=== PATIENT | male | born 1930 | race Two or more races ===

== ENCOUNTER 2016-12-26 19:58 | Inpatient (IN) | payer MEDICARE, MEDICAID ==
[~2016-12-26] VITALS: Ht 188 cm; Wt 117.5 kg
[2016-12-26 20:16] LABS: BASOPHILS # (AUTO) 0.1 /CMM (0.0-0.2); BASOPHILS % (AUTO) 1.3 % (0.0-2.0); DIFF TOTAL % 100 %; EOSINOPHILS % (AUTO) 0.3 % (0.0-6.0); HEMATOCRIT 37 % (39-51); HEMOGLOBIN 12.3 g/dL (13.5-17.5); LYMPHOCYTES # (AUTO) 1.3 /CMM (0.8-4.8); LYMPHOCYTES % (AUTO) 11.6 % (20.0-44.0); MEAN CORPUSCULAR HEMOGLOBIN 34 PG (26.0-33.0); MEAN CORPUSCULAR HGB CONC 34 g/dl (31.0-36.0); MEAN CORPUSCULAR VOLUME 99 fL (80-96); MONOCYTES % (AUTO) 9.2 % (2.0-12.0); NEUTROPHILS # (AUTO) 8.8 /CMM (1.8-8.9); NEUTROPHILS % (AUTO) 77.6 % (43.0-81.0); PLATELET COUNT (AUTO) 307 /CMM (150-450); RED BLOOD CELL COUNT(AUTO) 3.67 MIL/uL (4.5-6.0); WHITE BLOOD COUNT (AUTO) 11.2 K/uL (4.3-11.0)
[2016-12-26] MEDS ORDERED: ACETAMINOPHEN 650 MG/SUPP.RECT RC ONE ×2 (20:19→20:30)
[2016-12-26] MEDS ORDERED: IV SET PRIMARY 1 EA INFUS.SET MC ONE ×2 (20:19→20:24)
[2016-12-26] MEDS ORDERED: IV NS 0.9% 1,000 ML ONE (20:19)
[2016-12-26] MEDS ORDERED: CEFEPIME 1 GM VIAL ONE (20:23)
[2016-12-26] MEDS ORDERED: VANCOMYCIN 1 GM VIAL ONE (20:24)
[2016-12-26] MEDS ORDERED: IV D5W 250 ML IV ONE (20:24)
[2016-12-26] MEDS ORDERED: IV SET PRIMARY PUMP SET 1 EA INFUS.SET MC ONE ×2 (20:24→21:16)
[2016-12-26] MEDS ORDERED: IV D5W 50 ML IV ONE (20:24)
[2016-12-26] MEDS ORDERED: POLY15DR57 EACHEYE (20:29)
[2016-12-26] MEDS ORDERED: MAGN400O6 PO (20:29)
[2016-12-26] MEDS ORDERED: APIX2.5T PO (20:29)
[2016-12-26] MEDS ORDERED: INSU100C10 SQ (20:29)
[2016-12-26] MEDS ORDERED: AMIO100T4 PO (20:29)
[2016-12-26] MEDS ORDERED: IPRA3AMP IH (20:29)
[2016-12-26] MEDS ORDERED: INSU100V7 SQ (20:29)
[2016-12-26] MEDS ORDERED: DOCU-170 PO (20:29)
[2016-12-26] MEDS ORDERED: METH40VI24 IJ (20:29)
[2016-12-26] MEDS ORDERED: CARB1TAB19 PO (20:29)
[2016-12-26] MEDS ORDERED: LACT1CAP61 PO (20:29)
[2016-12-26] MEDS ORDERED: FLUT16SP BNOSTRILS (20:29)
[2016-12-26] MEDS ORDERED: BACI28.42 TP (20:29)
[2016-12-26] MEDS ORDERED: LEVO137T2 PO (20:29)
[2016-12-26] MEDS ORDERED: ACET650T10 PO (20:29)
[2016-12-26] MEDS ORDERED: MAGN400T6 PO (20:29)
[2016-12-26] MEDS ORDERED: CRAN425C PO (20:29)
[2016-12-26] MEDS ORDERED: FURO-144 PO (20:29)
[2016-12-26] MEDS ORDERED: [UNRECOGNIZED DRUG - CODE] EACHEYE (20:29)
[2016-12-26] MEDS ORDERED: BISA10SU8 RC (20:29)
[2016-12-26] MEDS ORDERED: VENL75TA4 PO (20:29)
[2016-12-26] MEDS ORDERED: CEFEPIME 1 GM in IV D5W 50 ML IV ONE (20:30)
[2016-12-26] MEDS ORDERED: IV NS 0.9% 1,000 ML BAG IV ONE (20:30)
[2016-12-26] MEDS ORDERED: VANCOMYCIN 1 GM in IV D5W 250 ML IV ONE (20:30)
[2016-12-26 20:31] LABS: INR 0.99 (0.87-1.13); PROTHROMBIN TIME 10.4 SECS (9.5-12.7)
[2016-12-26 20:32] LABS: ANION GAP 12 (5-14); CALCIUM, SERUM 8.4 mg/dL (8.5-10.1); CARBON DIOXIDE 29 mmol/L (21-32); CHLORIDE 103 mmol/L (98-107); CREATININE 2.3 mg/dL (0.6-1.3); GLUCOSE 209 mg/dL (74-106); POTASSIUM 5.3 mmol/L (3.5-5.1); SODIUM SERUM 139 mmol/L (136-145); UREA NITROGEN, BLOOD 38 mg/dL (7-18)
[2016-12-26 20:43] LABS: ALANINE AMINOTRANSFERASE 14 U/L (12-78); ALBUMIN 3.4 g/dL (3.4-5.0); ASPARTATE AMINOTRANSFERASE 30 U/L (15-37); BILIRUBIN,DIRECT 0.1 mg/dL (0.0-0.2); BILIRUBIN,TOTAL 0.5 mg/dL (0.2-1.0); TOTAL PROTEIN, SERUM 7.7 g/dL (6.4-8.2)
[2016-12-26 20:44] LABS: INDIRECT BILIRUBIN 0.4 mg/dL (0.0-1.1)
[2016-12-26 20:52] LABS: LACTIC ACID 3.8 mmol/L (0.4-2.0)
[2016-12-26 20:55] VITALS: BP 85/56
[2016-12-26 20:58] LABS: TROPONIN I 0.388 ng/mL (0.00-0.056)
[2016-12-26 21:13] LABS: *LACTIC ACID REFLEX FLAG YES
[2016-12-26] MEDS ORDERED: NOREPINEPHRINE 4 MG/4 ML AMPUL IV ONE (21:16)
[2016-12-26] MEDS ORDERED: IV D5W 500 ML IV ONE (21:16)
[2016-12-26 21:28] LABS: ABG BASE EXCESS -0.8 mmol/L; ABG HCO3 25.9 mmol/L; ABG PCO2 52.6 mmHg (35.0-45.0); ABG PH 7.311 (7.350-7.450); ABG PO2 29.3 mmHg (75.0-100.0); ALLEN TEST Pass; AaDO2 631.1 mmHg; O2Hb 47.4 % (94.0-97.0)
[2016-12-26] MEDS ORDERED: NOREPINEPHRINE 8 MG in IV D5W 500 ML IV ONE (21:30)
[2016-12-26] MEDS ORDERED: KETOROLAC TROMETHAMINE INJ 30 MG/ML VIAL IV STA (21:46)
[2016-12-26] MEDS ORDERED: KETOROLAC TROMETHAMINE 15 MG/ML VIAL ONE (21:46)
[2016-12-26 21:55] LABS: KETONES,URINE NEGATIVE (NEGATIVE); LEUKOCYTE ESTERASE ,URINE 3+ (NEGATIVE); PH,URINE 5.5 (5.0-8.0)
[2016-12-26 21:56] LABS: ADD UA MICROSCOPIC YES
[2016-12-26 22:00] VITALS: BP 109/62
[2016-12-26 22:04] LABS: ADD URINE CULTURE YES; WBC,URINE 51-80 /HPF (0-3)
[2016-12-26 22:05] LABS: MUCUS,URINE Few /LPF (None Seen)
[2016-12-26] MEDS ORDERED: ACETAMINOPHEN 650 MG/SUPP.RECT RC PRN (22:30)
[2016-12-26] MEDS ORDERED: ONDANSETRON HCL/PF 4 MG/2 ML VIAL IVP PRN (22:30)
[2016-12-26] MEDS ORDERED: NOREPINEPHRINE 8 MG in IV D5W 500 ML IV PRN (22:30)
[2016-12-26 23:00] VITALS: BP 102/62
[2016-12-26] MEDS ORDERED: DEXTROSE 50%-WATER 50 ML DISP.SYRIN IV PRN (23:00)
[2016-12-26] MEDS: BLOOD SUGAR DIAGNOSTIC 1 EACH STRIP IN SCH (23:35)
[2016-12-26] MEDS: INSULIN REGULAR, HUMAN 100 UNIT/ML 3 ML VIAL SQ PRN (23:38)
[2016-12-26 23:49] VITALS: BP 112/59
[2016-12-27] VITALS (58 sets, daily range): BP systolic 56–164; BP diastolic 43–112
[2016-12-27] MEDS ORDERED: ASPIRIN 81 MG TAB.CHEW PO STA (00:12)
[2016-12-27] MEDS ORDERED: ASPIRIN 81 MG TAB.CHEW ONE (00:36)
[2016-12-27] MEDS ORDERED: ALBUTEROL FS 2.5 MG/3 ML VIAL.NEB NEB ONE (01:00)
[2016-12-27] MEDS ORDERED: ALBUTEROL FS 2.5 MG/0.5 ML VIAL.NEB NEB PRN (01:00)
[2016-12-27] MEDS ORDERED: IPRATROPIUM NEB FS 0.5 MG/2.5 ML AMPUL.NEB NEB PRN (01:00)
[2016-12-27] MEDS ORDERED: ALBUTEROL FS 2.5 MG/3 ML VIAL.NEB ONE (01:15)
[2016-12-27] MEDS ORDERED: NOREPINEPHRINE 8 MG in IV D5W 500 ML IV PRN (01:30)
[2016-12-27 05:01] LABS: BASOPHILS % (AUTO) 0.2 % (0.0-2.0); DIFF TOTAL % 100 %; HEMATOCRIT 31 % (39-51); HEMOGLOBIN 10.1 g/dL (13.5-17.5); LYMPHOCYTES # (AUTO) 1.5 /CMM (0.8-4.8); LYMPHOCYTES % (AUTO) 8.5 % (20.0-44.0); MEAN CORPUSCULAR HEMOGLOBIN 33 PG (26.0-33.0); MEAN CORPUSCULAR HGB CONC 33 g/dl (31.0-36.0); MEAN CORPUSCULAR VOLUME 101 fL (80-96); MONOCYTES # (AUTO) 1.1 /CMM (0.1-1.30); MONOCYTES % (AUTO) 6.3 % (2.0-12.0); NEUTROPHILS # (AUTO) 14.5 /CMM (1.8-8.9); PLATELET COUNT (AUTO) 263 /CMM (150-450); RED BLOOD CELL COUNT(AUTO) 3.07 MIL/uL (4.5-6.0); WHITE BLOOD COUNT (AUTO) 17.1 K/uL (4.3-11.0)
[2016-12-27 05:22] LABS: ALBUMIN 2.9 g/dL (3.4-5.0); BILIRUBIN,TOTAL 0.5 mg/dL (0.2-1.0); CREATININE 2.6 mg/dL (0.6-1.3); PHOSPHORUS 4.1 mg/dL (2.5-4.9); POTASSIUM 4.7 mmol/L (3.5-5.1); TOTAL PROTEIN, SERUM 6.7 g/dL (6.4-8.2)
[2016-12-27 05:47] LABS: ANISOCYTOSIS 1+; BAND % (MANUAL) 44 % (0.0-5.0); BASOPHILS % (MANUAL) 0 % (0.0-2.0); EOSINOPHILS % (MANUAL) 0 % (0-4); LYMPHOCYTES % (MANUAL) 10 % (16-48); PLATELET ESTIMATE ADEQUATE
[2016-12-27] MEDS: BLOOD SUGAR DIAGNOSTIC 1 EACH STRIP IN SCH ×4 (07:30→21:04)
[2016-12-27] MEDS ORDERED: LEVOTHYROXINE INJ 100 MCG VIAL IV SCH (07:30)
[2016-12-27] MEDS ORDERED: FEE PK DOSING 1 MIN EA MC ONE (08:47)
[2016-12-27] MEDS: ASPIRIN 81 MG TAB.CHEW PO SCH (08:47)
[2016-12-27] MEDS: PANTOPRAZOLE 40 MG VIAL IV SCH (09:00)
[2016-12-27] MEDS ORDERED: HEPARIN SODIUM, PORCINE 5000 UNITS/1 ML VIAL SQ SCH (09:00)
[2016-12-27 10:27] LABS: ABG BASE EXCESS 1.5 mmol/L; ABG HCO3 27.4 mmol/L; ABG PCO2 49.7 mmHg (35.0-45.0); ABG PO2 87.1 mmHg (75.0-100.0); ABG TOTAL HEMOGLOBIN 10.3 G/dL (13.5-18.0); ALLEN TEST Pass; AaDO2 82.9 mmHg; O2Hb 94.5 % (94.0-97.0)
[2016-12-27] MEDS ORDERED: LEVOFLOXACIN 500 MG /D5W 100ML 100 ML IV SCH (10:30)
[2016-12-27] MEDS ORDERED: LEVOFLOXACIN 500 MG /D5W 100ML 100 ML IV ONE (11:00)
[2016-12-27] MEDS ORDERED: BISACODYL SUPP (10 MG) 10 MG/SUPP.RECT SUPP.RECT RC PRN (11:30)
[2016-12-27] MEDS: VENLAFAXINE 37.5 MG TABLET PO SCH (12:19)
[2016-12-27] MEDS: CARBIDOPA/LEVODOPA 25/100 MG 1 UDTAB PO SCH ×2 (12:19→17:46)
[2016-12-27] MEDS: AMIODARONE HCL 200 MG TABLET PO SCH (12:20)
[2016-12-27] MEDS: POLYVINYL ALCOHOL 15 ML BOTTLE OP SCH ×2 (12:23→18:11)
[2016-12-27] MEDS: BACITRACIN ZINC OINT (15 GM) 15 GM TUBE TP SCH ×2 (12:23→17:00)
[2016-12-27] MEDS ORDERED: Medication Not On Formulary EA (Ipratropium/Albuterol Sulfate (Duoneb 2.5-0.5 Mg/3 Ml So IH SCH (13:00)
[2016-12-27] MEDS: ALBUTEROL FS 2.5 MG/0.5 ML VIAL.NEB NEB SCH ×2 (13:13→19:30)
[2016-12-27] MEDS: IPRATROPIUM NEB FS 0.5 MG/2.5 ML AMPUL.NEB NEB SCH ×2 (13:13→19:30)
[2016-12-27] MEDS ORDERED: IPRATROPIUM NEB FS 0.5 MG/2.5 ML AMPUL.NEB NEB SCH (13:30)
[2016-12-27] MEDS ORDERED: ALBUTEROL FS 2.5 MG/0.5 ML VIAL.NEB NEB SCH (13:30)
[2016-12-27] MEDS ORDERED: MAGNESIUM OXIDE 400 MG TABLET PO SCH (17:00)
[2016-12-27] MEDS: LACTOBACILLUS RHAMNOSUS GG 1 EACH CAP.SPRINK PO SCH (17:46)
[2016-12-27] MEDS: APIXABAN 2.5 MG TABLET PO SCH (17:46)
[2016-12-27] MEDS: FLUTICASONE PROPIONATE 16 GM BOTTLE NS PRN (17:47)
[2016-12-27] MEDS ORDERED: IV NS 0.9% 250 ML IV ONE (18:35)
[2016-12-27] MEDS ORDERED: SECONDARY IV SET 1 EA INFUS.SET MC ONE (19:28)
[2016-12-27] MEDS: CEFEPIME 1 GM in IV D5W 50 ML IV SCH (19:31)
[2016-12-27] MEDS: INSULIN REGULAR, HUMAN 100 UNIT/ML 3 ML VIAL SQ PRN (21:05)
[2016-12-27] MEDS: INSULIN DETEMIR 100 UNIT/ML CARTRIDGE SQ SCH (21:06)
[2016-12-28] VITALS (28 sets, daily range): BP systolic 66–119; BP diastolic 29–81
[2016-12-28] MEDS: ALBUTEROL FS 2.5 MG/0.5 ML VIAL.NEB NEB SCH ×4 (02:13→20:22)
[2016-12-28] MEDS: IPRATROPIUM NEB FS 0.5 MG/2.5 ML AMPUL.NEB NEB SCH ×4 (02:13→20:22)
[2016-12-28 04:53] LABS: CALCIUM, SERUM 8.3 mg/dL (8.5-10.1); CREATININE 2.3 mg/dL (0.6-1.3); PHOSPHORUS 3.5 mg/dL (2.5-4.9); POTASSIUM 4.6 mmol/L (3.5-5.1)
[2016-12-28 05:00] LABS: BASOPHILS % (AUTO) 0.4 % (0.0-2.0); DIFF TOTAL % 100 %; EOSINOPHILS # (AUTO) 0.1 /CMM (0.0-0.7); EOSINOPHILS % (AUTO) 1.1 % (0.0-6.0); HEMATOCRIT 26 % (39-51); HEMOGLOBIN 8.2 g/dL (13.5-17.5); LYMPHOCYTES # (AUTO) 1.5 /CMM (0.8-4.8); LYMPHOCYTES % (AUTO) 13.3 % (20.0-44.0); MEAN CORPUSCULAR HEMOGLOBIN 32 PG (26.0-33.0); MEAN CORPUSCULAR HGB CONC 32 g/dl (31.0-36.0); MEAN CORPUSCULAR VOLUME 101 fL (80-96); MONOCYTES # (AUTO) 1.1 /CMM (0.1-1.30); MONOCYTES % (AUTO) 9.3 % (2.0-12.0); NEUTROPHILS # (AUTO) 8.7 /CMM (1.8-8.9); NEUTROPHILS % (AUTO) 75.9 % (43.0-81.0); PLATELET COUNT (AUTO) 181 /CMM (150-450); RED BLOOD CELL COUNT(AUTO) 2.55 MIL/uL (4.5-6.0); WHITE BLOOD COUNT (AUTO) 11.4 K/uL (4.3-11.0)
[2016-12-28] MEDS: BLOOD SUGAR DIAGNOSTIC 1 EACH STRIP IN SCH ×4 (08:11→21:50)
[2016-12-28] MEDS: PANTOPRAZOLE 40 MG VIAL IV SCH (08:49)
[2016-12-28] MEDS: AMIODARONE HCL 200 MG TABLET PO SCH (08:50)
[2016-12-28] MEDS: LACTOBACILLUS RHAMNOSUS GG 1 EACH CAP.SPRINK PO SCH ×2 (08:50→18:30)
[2016-12-28] MEDS: VENLAFAXINE 37.5 MG TABLET PO SCH (08:50)
[2016-12-28] MEDS: DOCUSATE SODIUM 100 MG CAPSULE PO SCH (08:50)
[2016-12-28] MEDS: CARBIDOPA/LEVODOPA 25/100 MG 1 UDTAB PO SCH ×2 (08:51→18:30)
[2016-12-28] MEDS: LEVOTHYROXINE SODIUM 137 MCG TABLET PO SCH (08:51)
[2016-12-28] MEDS: ASPIRIN 81 MG TAB.CHEW PO SCH (08:51)
[2016-12-28] MEDS: APIXABAN 2.5 MG TABLET PO SCH ×2 (08:54→18:31)
[2016-12-28] MEDS: POLYVINYL ALCOHOL 15 ML BOTTLE OP SCH ×3 (08:55→18:33)
[2016-12-28] MEDS: Z GUARD REMEDY 2 OZ OINT TP PRN ×2 (08:56→14:46)
[2016-12-28] MEDS: FLUTICASONE PROPIONATE 16 GM BOTTLE NS PRN (08:56)
[2016-12-28] MEDS: BACITRACIN ZINC OINT (15 GM) 15 GM TUBE TP SCH ×3 (08:56→18:34)
[2016-12-28] MEDS ORDERED: VANCOMYCIN 1.25 GM in IV D5W 500 ML IV SCH (09:00)
[2016-12-28] MEDS ORDERED: GLYCERIN EACHEYE SCH (09:00)
[2016-12-28] MEDS ORDERED: Medication Not On Formulary EA (Cranberry Extract (Cranberry) 425 MG) PO SCH (09:00)
[2016-12-28] MEDS ORDERED: [UNRECOGNIZED DRUG - OTHER] EACHEYE SCH (09:00)
[2016-12-28] MEDS ORDERED: NAPHAZOLINE HCL EACHEYE SCH (09:00)
[2016-12-28] MEDS: LEVOFLOXACIN 250 MG /D5W 50 ML 250 MG in PREMIX 1 EA IV SCH (11:01)
[2016-12-28] MEDS: FUROSEMIDE 40 MG/4 ML VIAL IV SCH ×2 (12:46→18:30)
[2016-12-28] MEDS: INSULIN REGULAR, HUMAN 100 UNIT/ML 3 ML VIAL SQ PRN ×2 (12:47→18:33)
[2016-12-28] MEDS: ACETYLCYSTEINE 10% SOLN 400 MG/4 ML VIAL NEB SCH ×2 (12:53→20:22)
[2016-12-28] MEDS: HYDROCORTISONE 1% CREAM 28.35 GM TUBE TP SCH ×2 (14:44→18:34)
[2016-12-28 16:04] LABS: CREATININE, URINE < 13.0 MG/DL (30.0-125.0); URINE SODIUM, RANDOM 100 mmol/l (40-220)
[2016-12-28] MEDS: CEFEPIME 1 GM in IV D5W 50 ML IV SCH (20:10)
[2016-12-28] MEDS ORDERED: SECONDARY IV SET 1 EA INFUS.SET MC ONE (20:36)
[2016-12-28] MEDS: MUPIROCIN OINT 2% 22 GM TUBE SCH (21:34)
[2016-12-28] MEDS: INSULIN DETEMIR 100 UNIT/ML CARTRIDGE SQ SCH (21:53)
[2016-12-29] VITALS (28 sets, daily range): BP systolic 98–156; BP diastolic 51–82
[2016-12-29] MEDS: IPRATROPIUM NEB FS 0.5 MG/2.5 ML AMPUL.NEB NEB SCH ×4 (02:14→19:25)
[2016-12-29] MEDS: ALBUTEROL FS 2.5 MG/0.5 ML VIAL.NEB NEB SCH ×4 (02:14→19:25)
[2016-12-29 05:25] LABS: CALCIUM, SERUM 8.6 mg/dL (8.5-10.1); CREATININE 2.2 mg/dL (0.6-1.3); POTASSIUM 4.4 mmol/L (3.5-5.1)
[2016-12-29] MEDS: ACETYLCYSTEINE 10% SOLN 400 MG/4 ML VIAL NEB SCH ×2 (07:29→19:24)
[2016-12-29] MEDS: BLOOD SUGAR DIAGNOSTIC 1 EACH STRIP IN SCH ×4 (07:51→22:00)
[2016-12-29] MEDS: LEVOTHYROXINE SODIUM 137 MCG TABLET PO SCH (07:52)
[2016-12-29] MEDS: DOCUSATE SODIUM 100 MG CAPSULE PO SCH (08:01)
[2016-12-29] MEDS: CARBIDOPA/LEVODOPA 25/100 MG 1 UDTAB PO SCH ×2 (08:01→16:15)
[2016-12-29] MEDS: AMIODARONE HCL 200 MG TABLET PO SCH (08:01)
[2016-12-29] MEDS: ASPIRIN 81 MG TAB.CHEW PO SCH (08:01)
[2016-12-29] MEDS: FUROSEMIDE 40 MG/4 ML VIAL IV SCH ×2 (08:02→16:15)
[2016-12-29] MEDS: APIXABAN 2.5 MG TABLET PO SCH ×2 (08:02→16:43)
[2016-12-29] MEDS: LACTOBACILLUS RHAMNOSUS GG 1 EACH CAP.SPRINK PO SCH ×2 (08:02→16:15)
[2016-12-29] MEDS: VENLAFAXINE 37.5 MG TABLET PO SCH (08:02)
[2016-12-29] MEDS: PANTOPRAZOLE 40 MG VIAL IV SCH (08:02)
[2016-12-29] MEDS: Z GUARD REMEDY 2 OZ OINT TP PRN (08:03)
[2016-12-29] MEDS: MUPIROCIN OINT 2% 22 GM TUBE SCH ×2 (08:14→22:00)
[2016-12-29] MEDS: BACITRACIN ZINC OINT (15 GM) 15 GM TUBE TP SCH ×3 (08:16→16:19)
[2016-12-29] MEDS: POLYVINYL ALCOHOL 15 ML BOTTLE OP SCH ×3 (08:17→16:18)
[2016-12-29] MEDS: HYDROCORTISONE 1% CREAM 28.35 GM TUBE TP SCH ×2 (08:17→16:18)
[2016-12-29] MEDS: LEVOFLOXACIN 250 MG /D5W 50 ML 250 MG in PREMIX 1 EA IV SCH (10:01)
[2016-12-29 10:38] LABS: BASOPHILS % (AUTO) 0.3 % (0.0-2.0); DIFF TOTAL % 100 %; EOSINOPHILS # (AUTO) 0.2 /CMM (0.0-0.7); EOSINOPHILS % (AUTO) 1.7 % (0.0-6.0); HEMATOCRIT 26 % (39-51); HEMOGLOBIN 8.3 g/dL (13.5-17.5); LYMPHOCYTES # (AUTO) 1.6 /CMM (0.8-4.8); LYMPHOCYTES % (AUTO) 17.3 % (20.0-44.0); MEAN CORPUSCULAR HEMOGLOBIN 33 PG (26.0-33.0); MEAN CORPUSCULAR HGB CONC 33 g/dl (31.0-36.0); MEAN CORPUSCULAR VOLUME 101 fL (80-96); NEUTROPHILS # (AUTO) 6.4 /CMM (1.8-8.9); NEUTROPHILS % (AUTO) 69.7 % (43.0-81.0); PLATELET COUNT (AUTO) 184 /CMM (150-450); RED BLOOD CELL COUNT(AUTO) 2.51 MIL/uL (4.5-6.0); WHITE BLOOD COUNT (AUTO) 9.2 K/uL (4.3-11.0)
[2016-12-29] MEDS: INSULIN REGULAR, HUMAN 100 UNIT/ML 3 ML VIAL SQ PRN (12:30)
[2016-12-29] MEDS ORDERED: MEROPENEM 500 MG in IV NS 0.9% 50 ML IV SCH (13:00)
[2016-12-29] MEDS ORDERED: SECONDARY IV SET 1 EA INFUS.SET MC ONE (14:19)
[2016-12-29] MEDS: MEROPENEM 1 G in IV NS 0.9% 100 ML IV SCH ×2 (14:24→23:01)
[2016-12-29] MEDS: INSULIN DETEMIR 100 UNIT/ML CARTRIDGE SQ SCH (22:10)
[2016-12-30] VITALS (28 sets, daily range): BP systolic 89–164; BP diastolic 49–89
[2016-12-30] MEDS: ALBUTEROL FS 2.5 MG/0.5 ML VIAL.NEB NEB SCH ×4 (01:25→19:42)
[2016-12-30] MEDS: IPRATROPIUM NEB FS 0.5 MG/2.5 ML AMPUL.NEB NEB SCH ×4 (01:25→19:42)
[2016-12-30 05:18] LABS: CALCIUM, SERUM 9.2 mg/dL (8.5-10.1); CREATININE 2.3 mg/dL (0.6-1.3); POTASSIUM 4.3 mmol/L (3.5-5.1)
[2016-12-30] MEDS: ACETYLCYSTEINE 10% SOLN 400 MG/4 ML VIAL NEB SCH ×2 (07:22→19:42)
[2016-12-30] MEDS: BLOOD SUGAR DIAGNOSTIC 1 EACH STRIP IN SCH ×4 (08:00→22:20)
[2016-12-30] MEDS: LACTOBACILLUS RHAMNOSUS GG 1 EACH CAP.SPRINK PO SCH ×2 (08:01→16:19)
[2016-12-30] MEDS: MEROPENEM 1 G in IV NS 0.9% 100 ML IV SCH ×2 (08:01→20:08)
[2016-12-30] MEDS: AMIODARONE HCL 200 MG TABLET PO SCH (08:01)
[2016-12-30] MEDS: CARBIDOPA/LEVODOPA 25/100 MG 1 UDTAB PO SCH ×2 (08:02→16:19)
[2016-12-30] MEDS: ASPIRIN 81 MG TAB.CHEW PO SCH (08:02)
[2016-12-30] MEDS: FUROSEMIDE 40 MG/4 ML VIAL IV SCH ×2 (08:02→16:19)
[2016-12-30] MEDS: LEVOTHYROXINE SODIUM 137 MCG TABLET PO SCH (08:02)
[2016-12-30] MEDS: PANTOPRAZOLE 40 MG VIAL IV SCH (08:02)
[2016-12-30] MEDS: VENLAFAXINE 37.5 MG TABLET PO SCH (08:02)
[2016-12-30] MEDS: DOCUSATE SODIUM 100 MG CAPSULE PO SCH (08:02)
[2016-12-30] MEDS: MUPIROCIN OINT 2% 22 GM TUBE SCH ×2 (08:03→20:09)
[2016-12-30] MEDS: Z GUARD REMEDY 2 OZ OINT TP PRN (08:03)
[2016-12-30] MEDS: HYDROCORTISONE 1% CREAM 28.35 GM TUBE TP SCH ×2 (08:04→16:20)
[2016-12-30] MEDS: BACITRACIN ZINC OINT (15 GM) 15 GM TUBE TP SCH ×3 (08:04→16:20)
[2016-12-30] MEDS: POLYVINYL ALCOHOL 15 ML BOTTLE OP SCH ×3 (08:10→16:22)
[2016-12-30] MEDS: APIXABAN 2.5 MG TABLET PO SCH ×2 (08:10→16:19)
[2016-12-30] MEDS: INSULIN REGULAR, HUMAN 100 UNIT/ML 3 ML VIAL SQ PRN ×2 (12:21→17:16)
[2016-12-30] MEDS ORDERED: IV NS 0.9% 250 ML IV ONE (16:02)
[2016-12-30] MEDS: INSULIN DETEMIR 100 UNIT/ML CARTRIDGE SQ SCH (22:21)
[2016-12-31] VITALS (10 sets, daily range): BP systolic 95–155; BP diastolic 56–88
[2016-12-31] MEDS: ALBUTEROL FS 2.5 MG/0.5 ML VIAL.NEB NEB SCH ×3 (01:33→13:30)
[2016-12-31] MEDS: IPRATROPIUM NEB FS 0.5 MG/2.5 ML AMPUL.NEB NEB SCH ×3 (01:33→14:48)
[2016-12-31 04:42] LABS: BASOPHILS # (AUTO) 0.1 /CMM (0.0-0.2); BASOPHILS % (AUTO) 0.9 % (0.0-2.0); DIFF TOTAL % 100 %; EOSINOPHILS # (AUTO) 0.3 /CMM (0.0-0.7); EOSINOPHILS % (AUTO) 3.3 % (0.0-6.0); HEMATOCRIT 29 % (39-51); HEMOGLOBIN 9.3 g/dL (13.5-17.5); LYMPHOCYTES # (AUTO) 1.9 /CMM (0.8-4.8); LYMPHOCYTES % (AUTO) 22.5 % (20.0-44.0); MEAN CORPUSCULAR HEMOGLOBIN 32 PG (26.0-33.0); MEAN CORPUSCULAR HGB CONC 32 g/dl (31.0-36.0); MEAN CORPUSCULAR VOLUME 100 fL (80-96); MONOCYTES # (AUTO) 1.1 /CMM (0.1-1.30); MONOCYTES % (AUTO) 13.2 % (2.0-12.0); NEUTROPHILS # (AUTO) 5.2 /CMM (1.8-8.9); NEUTROPHILS % (AUTO) 60.1 % (43.0-81.0); PLATELET COUNT (AUTO) 246 /CMM (150-450); RED BLOOD CELL COUNT(AUTO) 2.89 MIL/uL (4.5-6.0); WHITE BLOOD COUNT (AUTO) 8.6 K/uL (4.3-11.0)
[2016-12-31 04:55] LABS: CALCIUM, SERUM 9.2 mg/dL (8.5-10.1); CREATININE 2.3 mg/dL (0.6-1.3); PHOSPHORUS 4.1 mg/dL (2.5-4.9); POTASSIUM 4.2 mmol/L (3.5-5.1)
[2016-12-31] MEDS: ACETYLCYSTEINE 10% SOLN 400 MG/4 ML VIAL NEB SCH (08:18)
[2016-12-31] MEDS: MUPIROCIN OINT 2% 22 GM TUBE SCH (09:00)
[2016-12-31] MEDS ORDERED: IV SET PRIMARY PUMP SET 1 EA INFUS.SET MC ONE (09:11)
[2016-12-31] MEDS: BLOOD SUGAR DIAGNOSTIC 1 EACH STRIP IN SCH ×3 (09:29→17:22)
[2016-12-31] MEDS: CARBIDOPA/LEVODOPA 25/100 MG 1 UDTAB PO SCH ×2 (09:29→16:26)
[2016-12-31] MEDS: LACTOBACILLUS RHAMNOSUS GG 1 EACH CAP.SPRINK PO SCH ×2 (09:29→16:26)
[2016-12-31] MEDS: ASPIRIN 81 MG TAB.CHEW PO SCH (09:29)
[2016-12-31] MEDS: PANTOPRAZOLE 40 MG VIAL IV SCH (09:30)
[2016-12-31] MEDS: LEVOTHYROXINE SODIUM 137 MCG TABLET PO SCH (09:30)
[2016-12-31] MEDS: DOCUSATE SODIUM 100 MG CAPSULE PO SCH (09:31)
[2016-12-31] MEDS: FUROSEMIDE 40 MG/4 ML VIAL IV SCH ×2 (09:32→16:27)
[2016-12-31] MEDS: APIXABAN 2.5 MG TABLET PO SCH ×2 (09:32→16:27)
[2016-12-31] MEDS: MEROPENEM 1 G in IV NS 0.9% 100 ML IV SCH (09:34)
[2016-12-31] MEDS: VENLAFAXINE 37.5 MG TABLET PO SCH (09:34)
[2016-12-31] MEDS: AMIODARONE HCL 200 MG TABLET PO SCH (09:36)
[2016-12-31] MEDS: HYDROCORTISONE 1% CREAM 28.35 GM TUBE TP SCH ×2 (09:39→16:28)
[2016-12-31] MEDS: POLYVINYL ALCOHOL 15 ML BOTTLE OP SCH ×3 (09:40→16:27)
[2016-12-31] MEDS: BACITRACIN ZINC OINT (15 GM) 15 GM TUBE TP SCH ×3 (09:40→16:28)
[2016-12-31] MEDS: INSULIN REGULAR, HUMAN 100 UNIT/ML 3 ML VIAL SQ PRN (12:03)
[2016-12-31] MEDS ORDERED: Ipratropium Bromide NEB (15:40)
[2016-12-31] MEDS ORDERED: ALBU2.5V13 NEB (15:40)
[2016-12-31] MEDS ORDERED: PRED20TA PO (15:42)
== END 2016-12-31 18:00 | DRG 871 ==
LOC: ER 20:00 → ICU 20:54 → TELE1 12-31 06:05 → MEDSG1 12-31 09:03
PROVIDERS: ADMIT Nurse Practitioner Acute Care; ATTEND Nurse Practitioner Acute Care
PROC: 5A09457 Assistance with Respiratory Ventilation, 24-96 Consecutive Hours, Continuous Positive Airway Pressure (ICD-10-PCS; principal; 2016-12-26)
PROC: 06HM33Z Insertion of Infusion Device into Right Femoral Vein, Percutaneous Approach (ICD-10-PCS; 2016-12-26)
PROC: B54BZZA Ultrasonography of Right Lower Extremity Veins, Guidance (ICD-10-PCS; 2016-12-26)
DX: A41.9 Sepsis, unspecified organism (principal); R65.21 Severe sepsis with septic shock; J96.01 Acute respiratory failure with hypoxia; J96.02 Acute respiratory failure with hypercapnia; J15.6 Pneumonia due to other Gram-negative bacteria; J15.9 Unspecified bacterial pneumonia; I21.4 Non-ST elevation (NSTEMI) myocardial infarction; I50.43 Acute on chronic combined systolic (congestive) and diastolic (congestive) heart failure; N17.0 Acute kidney failure with tubular necrosis; N39.0 Urinary tract infection, site not specified; I42.9 Cardiomyopathy, unspecified; I13.0 Hypertensive heart and chronic kidney disease with heart failure and stage 1 through stage 4 chronic kidney disease, or unspecified chronic kidney disease; E66.2 Morbid (severe) obesity with alveolar hypoventilation; D68.59 Other primary thrombophilia; J44.0 Chronic obstructive pulmonary disease with (acute) lower respiratory infection; G47.33 Obstructive sleep apnea (adult) (pediatric); M16.0 Bilateral primary osteoarthritis of hip; I25.10 Atherosclerotic heart disease of native coronary artery without angina pectoris; N18.9 Chronic kidney disease, unspecified; F32.9 Major depressive disorder, single episode, unspecified; D63.1 Anemia in chronic kidney disease; E11.22 Type 2 diabetes mellitus with diabetic chronic kidney disease; E03.9 Hypothyroidism, unspecified; G20 Parkinson's disease; D53.9 Nutritional anemia, unspecified; E87.5 Hyperkalemia; E86.0 Dehydration; Z95.0 Presence of cardiac pacemaker; N40.0 Benign prostatic hyperplasia without lower urinary tract symptoms; B96.20 Unspecified Escherichia coli [E. coli] as the cause of diseases classified elsewhere; F02.80 Dementia in other diseases classified elsewhere, unspecified severity, without behavioral disturbance, psychotic disturbance, mood disturbance, and anxiety; F41.9 Anxiety disorder, unspecified; H40.9 Unspecified glaucoma; I07.1 Rheumatic tricuspid insufficiency; I27.2 Other secondary pulmonary hypertension; I34.0 Nonrheumatic mitral (valve) insufficiency; I48.0 Paroxysmal atrial fibrillation; R32 Unspecified urinary incontinence; Z95.810 Presence of automatic (implantable) cardiac defibrillator
CPT/HCPCS: 36415; 36600; 71010-TC; 80048-TC; 80053-TC; 80061-TC; 80076-TC; 80202-TC; 81000-TC; 82570-TC; 82962-TC; 83605-TC; 83735-TC; 83880; 84100-TC; 84300-TC; 84484-TC; 85025-TC; 85730-TC; 87040-TC; 87081-TC; 87086-TC; 87186-TC; 92526; 92611-TC; 93307-TC; 94799-TC; 97001-TC; 97110-TC; 97116-TC; 97530-TC; 99082-TC; A4216; A4606; C9113; J0692; J1644; J1815; J1885; J1940; J1956; J2185; J3370; J7030; J7050; J7060; Z7610

== ENCOUNTER 2017-03-07 10:10 | Inpatient (IN) | payer MEDICARE, MEDICAID ==
[2017-03-07] VITALS (23 sets, daily range): BP systolic 100–120; BP diastolic 58–70
[~2017-03-07] VITALS: Ht 182.9 cm; Wt 101.6 kg
[~2017-03-07 10:10] MED LIST: ACET650T10 PO; ALBU2.5V13 NEB; AMIO100T4 PO; APIX2.5T PO; BACI28.42 TP; BISA10SU8 RC; CARB1TAB19 PO; CRAN425C PO; DOCU-170 PO; FLUT16SP BNOSTRILS; FURO-144 PO; INSU100C10 SQ; INSU100V7 SQ; IPRA3AMP IH; Ipratropium Bromide NEB; LACT1CAP61 PO; LEVO137T2 PO; MAGN400O6 PO; MAGN400T6 PO; POLY15DR57 EACHEYE; PRED20TA PO; VENL75TA4 PO; [UNRECOGNIZED DRUG - CODE] EACHEYE
--- NOTE | 2017-03-07 10:15 | NUR ---
PT BBRA 102 FROM [facility]: SOB, HYPOXIA, MORE ALTERED. BS IN FIELD 271. PLACED ON MONITOR. PT TACHYPNIC EVEN ON NON REBREATHER MASK. DR PERDOMO AT BEDSIDE FOR EVAL. PT DNI PER FAMILY. NEW ORDERS FOR BIPAP. RT AT BEDSIDE
--- NOTE | 2017-03-07 10:20 | NUR ---
RAC #18 IV ACCESS. LAC #20 IV ACCESS. BLOOD SAMPLE COLLECTED SENT TO LAB.
[2017-03-07] MEDS ORDERED: LEVOFLOXACIN 750 MG /D5W 150ML 150 ML IV ONE ×2 (10:30→10:42)
[2017-03-07] MEDS ORDERED: PIPERACILLIN /TAZOBACTAM 3.375 G in IV D5W 50 ML IV ONE (10:30)
[2017-03-07] MEDS ORDERED: VANCOMYCIN 1 GM in IV D5W 250 ML IV ONE (10:30)
--- NOTE | 2017-03-07 10:30 | NUR ---
PT ON BIPAP . IPAP 18 EPAP 5 RR 12 FIO2 40 %
[2017-03-07 10:31] LABS: BASOPHILS # (AUTO) 0.4 /CMM (0.0-0.2); BASOPHILS % (AUTO) 3.4 % (0.0-2.0); EOSINOPHILS # (AUTO) 0.1 /CMM (0.0-0.7); EOSINOPHILS % (AUTO) 0.8 % (0.0-6.0); HEMATOCRIT 30 % (39-51); HEMOGLOBIN 9.8 g/dL (13.5-17.5); LYMPHOCYTES % (AUTO) 18.9 % (20.0-44.0); MEAN CORPUSCULAR HEMOGLOBIN 33 PG (26.0-33.0); MEAN CORPUSCULAR HGB CONC 32 g/dl (31.0-36.0); MEAN CORPUSCULAR VOLUME 102 fL (80-96); MONOCYTES # (AUTO) 1.6 /CMM (0.1-1.30); MONOCYTES % (AUTO) 15.1 % (2.0-12.0); NEUTROPHILS # (AUTO) 6.3 /CMM (1.8-8.9); NEUTROPHILS % (AUTO) 61.8 % (43.0-81.0); PLATELET COUNT (AUTO) 265 /CMM (150-450); RDW COEFFICIENT OF VARIATION 16.2 (11.5-15.0); RED BLOOD CELL COUNT(AUTO) 2.96 MIL/uL (4.5-6.0); WHITE BLOOD COUNT (AUTO) 10.4 K/uL (4.3-11.0)
--- NOTE | 2017-03-07 10:38 | NUR ---
XRAY AT BEDSIDE
[2017-03-07 10:41] LABS: CALCIUM, SERUM 8.7 mg/dL (8.5-10.1); CREATININE 2.8 mg/dL (0.6-1.3); POTASSIUM 5.8 mmol/L (3.5-5.1)
[2017-03-07] MEDS ORDERED: IV SET PRIMARY PUMP SET 1 EA INFUS.SET MC ONE ×3 (10:42→14:53)
[2017-03-07 10:45] LABS: ABG BASE EXCESS 3.5 mmol/L; ABG OXYGEN SATURATION 98.5 % (92.0-98.5); ABG PCO2 94.5 mmHg (35.0-45.0); ABG PH 7.175 (7.350-7.450); ABG PO2 149.7 mmHg (75.0-100.0); ABG TOTAL HEMOGLOBIN 10.6 G/dL (13.5-18.0); AaDO2 461.4 mmHg; COHb 1.2 % (0.5-1.5); MetHb 0.2 % (0.0-1.5); O2Hb 97.1 % (94.0-97.0); SITE, ABG Right Brachial; VENT MODE, BG NON REBREATHER
--- NOTE | 2017-03-07 10:45 | NUR ---
BEY CATH IN PLACED. 300 ML OUTPUT URINE SAMPLE COLLECTED SENT TO LAB
[2017-03-07 10:50] LABS: INR 0.99 (0.87-1.13); PROTHROMBIN TIME 10.3 SECS (9.5-12.7)
[2017-03-07 10:54] LABS: ALBUMIN 3.1 g/dL (3.4-5.0); BILIRUBIN,DIRECT 0.1 mg/dL (0.0-0.2); BILIRUBIN,TOTAL 0.3 mg/dL (0.2-1.0); TOTAL PROTEIN, SERUM 8.2 g/dL (6.4-8.2)
--- NOTE | 2017-03-07 10:54 | NUR ---
pt placed into bipap due to increased wob with settings below per rt driven protocol: ipap 18 epap 5 rate 12 fio2 40% breath sounds diminished bilateral. Addendum: 03/07/17 at 1057 by DIYA ENGLISH RT Amended: Links added.
[2017-03-07 10:56] LABS: TROPONIN I 0.541 ng/mL (0.00-0.056)
[2017-03-07 10:58] LABS: LYMPHOCYTES % (MANUAL) 21 % (16-48); MONOCYTES % (MANUAL) 10 % (0-11.0); NEUTROPHILS % (MANUAL) 69 (42-76); PLATELET ESTIMATE ADEQUATE
[2017-03-07 10:59] LABS: LACTIC ACID 1.8 mmol/L (0.4-2.0)
--- NOTE | 2017-03-07 11:01 | NUR ---
EPIC PAGED PANEL CALL; DR HOLCOMB SHEET METAL WORKER. AWAITING CALLBACK. EPIC CARDIO PAGED; AWAITING CALLBACK.
--- NOTE | 2017-03-07 11:03 | NUR ---
DR HOLCOMB AT BEDSIDE
--- NOTE | 2017-03-07 11:05 | NUR ---
DR TOLENTINO ON PHONE WITH DR PERDOMO
[2017-03-07 11:13] LABS: APPEARANCE,URINE Slightly Cloudy (CLEAR); BILIRUBIN,URINE Negative (NEGATIVE); BLOOD, URINE Negative Ery/uL (NEGATIVE); COLOR,URINE Yellow (YELLOW); KETONES,URINE Negative (NEGATIVE); LEUKOCYTE ESTERASE ,URINE Small (NEGATIVE); NITRITE, URINE Negative (NEGATIVE); PH,URINE 5.5 (5.0-8.0); PROTEIN,URINE 100 mg/dl (NEGATIVE); UGLUCOSE Negative (NEGATIVE); UROBILINOGEN,URINE 0.2 EU/dL (0.2)
[2017-03-07 11:23] LABS: ADD URINE CULTURE YES; BACTERIA,URINE Few /HPF (None Seen); SQUAMOUS EPITHELIAL CELL,UR Rare /HPF (None Seen); URINE AMORPHOUS URATE Few /HPF (None Seen)
[2017-03-07] MEDS ORDERED: FUROSEMIDE 40 MG/4 ML VIAL ONE (11:30)
[2017-03-07] MEDS ORDERED: FUROSEMIDE 40 MG/4 ML VIAL IV ONE (11:30)
[2017-03-07] MEDS ORDERED: ASPIRIN 300 MG/SUPP.RECT RC ONE ×2 (11:30)
--- NOTE | 2017-03-07 12:10 | NUR ---
ICU INITIAL NOTES RECEIVED REPORT FROM MILEY IN ER, A/O X0, RESPONSE TO TACTILE STIMULI AND PAIN, PT WAS RECEIVED VIA BIPAP IPAP 18 EPAP 5 FIO2 40% R 12, BREATHING IS UNLABORED AND EVEN, NO S/S OF RESP. DISTRESS OR SOB NOTED AT THIS TIME, PT IS ON MONITOR SHOWING SR IN 80'S, PT HAS LCW ICD, PT HAS F/C DRAINING CLOUDY URINE TO GRAVITY, PT HAS RAC # 18G, SL, LAC 20G, SL, C/D/I/PATENT, FLUSHING WELL, NO S/S OF INFECTION/ INFILTRATION NOTED AT THIS TIME, PT IS NOTED WITH MULTIPLE SKIN ISSUES NOTED AT THIS TIME, PHOTOS TAKEN AND IN CHART, PT IS CURRENTLY NPO, ALL SAFETY MEASURES IN PLACE AT ALL TIMES, CALL LIGHT WITHIN EASY REACH, WILL MONITOR PT CLOSELY
--- NOTE | 2017-03-07 12:11 | NUR ---
GAVE REPORT TO CERTIFIED VEHICLE FIRE INVESTIGATORTANK KHAN CHF/PNA. TRANSPORT VIA ACLS PROTOCOL
--- NOTE | 2017-03-07 12:12 | NUR ---
transferred from er#1 to icu 256. pt. used same bipap machine, plugged into red outlet with alarm on and audible. carmel @ bedside. Addendum: 03/07/17 at 1213 by DIYA ENGLISH RT Amended: Links added.
[2017-03-07] MEDS ORDERED: LEVOFLOXACIN 500 MG /D5W 100ML 500 MG in PREMIX 1 EA IV SCH (13:30)
[2017-03-07] MEDS ORDERED: ALBUTEROL FS 2.5 MG/3 ML VIAL.NEB NEB PRN (13:30)
[2017-03-07] MEDS: LEVOTHYROXINE SODIUM 137 MCG TABLET PO SCH (13:30)
[2017-03-07] MEDS ORDERED: MORPHINE SULFATE INJ 2 MG/ML DISP.SYRIN IV PRN (13:30)
[2017-03-07] MEDS ORDERED: ONDANSETRON HCL/PF 4 MG/2 ML VIAL IVP PRN (13:30)
--- NOTE | 2017-03-07 13:44 | NUR ---
ICU CODE STATUS MANNY- AT BEDSIDE, CONFIRMING CODE STATUS, EXPLAINED AND ANSWERED QUESTIONS AND CONCERNS, CURRENTLY DNI, BUT OKAY WITH CPR AND CHEMICAL MEDICATIONS, WILL CALL [facility] TO VERIFY CODE STATUS.
[2017-03-07] MEDS ORDERED: LEVOFLOXACIN 500 MG /D5W 100ML 500 MG in PREMIX 1 EA IV ONE (14:00)
--- NOTE | 2017-03-07 14:12 | NUR ---
WOUND CARE CONSULT: PT PRESENTS WITH EDEMA TO LOWER EXTREMITIES, DRY ABRASIONS TO ARMS AND LEGS AND RASH TO PERINEUM, PRESENT ON ADMISSION. PT IS IMMOBILE. LESLEE SCORE IS 11. ALL SKIN PROTECTION MEASURES DISCUSSED WITH NURSING STAFF. BARIMAX BED ORDERED WITH ETS AIR. PT TO BE TURNED AND REPOSITIONED EVERY 2 HRS PT CONDITION PERMITS, HEELS FLOATED. MD IN AGREEMENT WITH PLAN OF CARE. Addendum: 03/07/17 at 1416 by LENI GOOD WNDNU Amended: Links added.
[2017-03-07] MEDS ORDERED: SECONDARY IV SET 1 EA INFUS.SET MC ONE (14:38)
[2017-03-07] MEDS ORDERED: BUMETANIDE INJ 4 MG in IV NS 0.9% 24 ML IV ONE (15:00)
[2017-03-07] MEDS: CARBIDOPA/LEVODOPA 10/100 MG 1 UDTAB PO SCH (16:28)
[2017-03-07] MEDS: APIXABAN 2.5 MG TABLET PO SCH (16:28)
[2017-03-07] MEDS: CLOTRIMAZOLE 1% 15 GM TUBE TP SCH (16:41)
[2017-03-07] MEDS: Z GUARD REMEDY 2 OZ OINT TP PRN (16:41)
[2017-03-07] MEDS ORDERED: FUROSEMIDE 40 MG/4 ML VIAL IV SCH (17:00)
[2017-03-07 17:38] LABS: ABG OXYGEN SATURATION 98.5 % (92.0-98.5); ABG PCO2 63.2 mmHg (35.0-45.0); ABG PH 7.325 (7.350-7.450); ABG PO2 131.7 mmHg (75.0-100.0); ABG TOTAL HEMOGLOBIN 9.5 G/dL (13.5-18.0); AaDO2 80.8 mmHg; COHb 1.3 % (0.5-1.5); MetHb 0.2 % (0.0-1.5); SITE, ABG Right Radial; VENT MODE, BG IPAP 18/ EPAP 5
[2017-03-07] MEDS: methylPREDNISolone SOD SUCC 125 MG/2ML VIAL IV SCH (17:44)
--- NOTE | 2017-03-07 18:37 | NUR ---
ADJUNCT INSTRUCTOR CLOSING NOTES PT REMAINED STABLE DURING SHIFT, ALL MEDICATIONS GIVEN, ALL MD ORDERS CARRIED OUT, IV INTACT/PATENT,SL, F/C DRAINING TO GRAVITY, PT TURNED AND REPOSITIONED, PT KEPT CLEAN AND DRY, ALL TREATMENTS CARRIED OUT, ALL SAFETY MEASURES IN PLACE AT ALL TIMES, CALL LIGHT WITHIN EASY REACH, REPORT WILL BE GIVEN TO PM RN FOR PILLO
--- NOTE | 2017-03-07 20:00 | NUR ---
SENIOR ENGINEERING TECHNICIAN WAS UPDATED OVER THE PHONE . PT IS AROUSABLE TO NAME AND TOUCH. BOTH IV ACCESS'S ARE PATENT. FC INTACT AND PATENT. BED ALARM ON AND SIDE RAILS UP . WILL CONT TO MONITOR.
[2017-03-07] MEDS: IPRATROPIUM NEB FS 0.5 MG/2.5 ML AMPUL.NEB NEB PRN (20:02)
[2017-03-07] MEDS: ALBUTEROL FS 2.5 MG/3 ML VIAL.NEB NEB SCH (20:05)
[2017-03-08] VITALS (26 sets, daily range): BP systolic 87–135; BP diastolic 47–86
--- NOTE | 2017-03-08 | NUR ---
DISK RECORDIST PLACED PT ON [facility] BED . PT TOLERATED WELL.
--- NOTE | 2017-03-08 00:30 | NUR ---
ROLL ON MAN BED BATH GIVEN AND TOLERATED WELL. ORAL CARE GIVEN.
[2017-03-08] MEDS: methylPREDNISolone SOD SUCC 125 MG/2ML VIAL IV SCH ×4 (01:03→17:07)
[2017-03-08] MEDS: IPRATROPIUM NEB FS 0.5 MG/2.5 ML AMPUL.NEB NEB PRN ×2 (02:00→14:15)
[2017-03-08] MEDS: ALBUTEROL FS 2.5 MG/3 ML VIAL.NEB NEB SCH ×4 (02:00→20:13)
[2017-03-08 05:10] LABS: BASOPHILS % (AUTO) 0.1 % (0.0-2.0); HEMATOCRIT 30 % (39-51); HEMOGLOBIN 9.3 g/dL (13.5-17.5); LYMPHOCYTES # (AUTO) 0.5 /CMM (0.8-4.8); LYMPHOCYTES % (AUTO) 5.8 % (20.0-44.0); MEAN CORPUSCULAR HEMOGLOBIN 32 PG (26.0-33.0); MEAN CORPUSCULAR HGB CONC 31 g/dl (31.0-36.0); MEAN CORPUSCULAR VOLUME 103 fL (80-96); MONOCYTES # (AUTO) 0.1 /CMM (0.1-1.30); MONOCYTES % (AUTO) 1.4 % (2.0-12.0); NEUTROPHILS # (AUTO) 7.2 /CMM (1.8-8.9); NEUTROPHILS % (AUTO) 92.7 % (43.0-81.0); PLATELET COUNT (AUTO) 216 /CMM (150-450); RED BLOOD CELL COUNT(AUTO) 2.88 MIL/uL (4.5-6.0); WHITE BLOOD COUNT (AUTO) 7.8 K/uL (4.3-11.0)
[2017-03-08 05:35] LABS: CALCIUM, SERUM 8.4 mg/dL (8.5-10.1); CREATININE 2.7 mg/dL (0.6-1.3); MAGNESIUM 2.8 mg/dL (1.8-2.4); PHOSPHORUS 7.3 mg/dL (2.5-4.9); POTASSIUM 6.1 mmol/L (3.5-5.1)
[2017-03-08 05:38] LABS: THYROID STIMULATING HORMONE 0.525 uIU/mL (0.358-3.74)
--- NOTE | 2017-03-08 08:30 | NUR ---
Swallow Evaluation Failed Bedside Swallow Evaluation: Attempted giving water and patient started coughing. Kept NPO and informed TUFTER Jm. Ordered swallow evaluation, NPO meds on hold per Practitioner.
--- NOTE | 2017-03-08 08:30 | NUR ---
PLACED OFF BIPAP ONTO 3LPM N/C. ZERO DISTRESS NOTED PT AWAKE AND ALERT.
[2017-03-08] MEDS: PANTOPRAZOLE 40 MG VIAL IV SCH (08:59)
[2017-03-08] MEDS: CLOTRIMAZOLE 1% 15 GM TUBE TP SCH ×2 (09:00→17:08)
[2017-03-08] MEDS: APIXABAN 2.5 MG TABLET PO SCH ×2 (09:00→15:55)
[2017-03-08] MEDS ORDERED: SODIUM POLYSTYRENE SULFONATE 15 G/60 ML BOTTLE PO ONE ×2 (09:00→13:30)
[2017-03-08] MEDS: CARBIDOPA/LEVODOPA 10/100 MG 1 UDTAB PO SCH ×3 (11:29→17:07)
[2017-03-08] MEDS: LEVOTHYROXINE SODIUM 137 MCG TABLET PO SCH (11:29)
--- NOTE | 2017-03-08 12:14 | NUR ---
Blood Stool Patient had one big blood stool (Liquid stool mixed with blood). Vital stable, stool sample sent for OB and informed Mccullough REVENUE STAMP CLERK. Stat H/H ordered.
[2017-03-08 12:29] LABS: HEMOGLOBIN 8.4 g/dL (13.5-17.5)
[2017-03-08] MEDS ORDERED: BUMETANIDE INJ 4 MG in IV NS 0.9% 24 ML IV ONE (13:35)
--- NOTE | 2017-03-08 20:00 | NUR ---
ICU/RN- PT IN BED A/OX1 TO NAME AND VERY FORGETFUL. ON MONITOR W/ V PACING 90S. ON O2 3L/MIN VIA NC W/ O2 SAT 96%. RESP EVEN AND UNLABORED. HL IN L AC AND R AC, PATENT AND INTACT. INSTRUCTED PT TO USE CALL LIGHT FOR ASSISTANCE. CALL LIGHT W/ IN REACH. BED LOW AND IN LOCKED POSITION. WILL MONITOR PT ACCORDINGLY.
[2017-03-08 20:33] LABS: HEMOGLOBIN 8.3 g/dL (13.5-17.5)
[2017-03-08 21:27] LABS: ABG BASE EXCESS 4.8 mmol/L; ABG OXYGEN SATURATION 90.4 % (92.0-98.5); ABG PCO2 59.6 mmHg (35.0-45.0); ABG PH 7.341 (7.350-7.450); ABG PO2 61.1 mmHg (75.0-100.0); ABG TOTAL HEMOGLOBIN 8.9 G/dL (13.5-18.0); AaDO2 82.8 mmHg; COHb 1.6 % (0.5-1.5); MetHb 1.3 % (0.0-1.5); O2Hb 87.8 % (94.0-97.0); SITE, ABG Left Radial; VENT MODE, BG 3LPM N.C
[2017-03-09] VITALS (21 sets, daily range): BP systolic 96–123; BP diastolic 44–87
[2017-03-09] MEDS: methylPREDNISolone SOD SUCC 125 MG/2ML VIAL IV SCH ×3 (00:26→17:07)
[2017-03-09] MEDS: ALBUTEROL FS 2.5 MG/3 ML VIAL.NEB NEB SCH ×4 (01:30→21:16)
[2017-03-09 05:05] LABS: HEMATOCRIT 26 % (39-51); HEMOGLOBIN 8.1 g/dL (13.5-17.5); LYMPHOCYTES # (AUTO) 0.6 /CMM (0.8-4.8); LYMPHOCYTES % (AUTO) 3.2 % (20.0-44.0); MEAN CORPUSCULAR HEMOGLOBIN 32 PG (26.0-33.0); MEAN CORPUSCULAR HGB CONC 32 g/dl (31.0-36.0); MEAN CORPUSCULAR VOLUME 102 fL (80-96); MONOCYTES # (AUTO) 1.2 /CMM (0.1-1.30); MONOCYTES % (AUTO) 6.6 % (2.0-12.0); NEUTROPHILS # (AUTO) 17.1 /CMM (1.8-8.9); NEUTROPHILS % (AUTO) 90.2 % (43.0-81.0); PLATELET COUNT (AUTO) 232 /CMM (150-450); RDW COEFFICIENT OF VARIATION 16.6 (11.5-15.0); RED BLOOD CELL COUNT(AUTO) 2.54 MIL/uL (4.5-6.0); WHITE BLOOD COUNT (AUTO) 18.9 K/uL (4.3-11.0)
[2017-03-09 05:17] LABS: ALBUMIN 2.7 g/dL (3.4-5.0); BILIRUBIN,TOTAL 0.3 mg/dL (0.2-1.0); CREATININE 2.9 mg/dL (0.6-1.3); MAGNESIUM 2.9 mg/dL (1.8-2.4); PHOSPHORUS 5.1 mg/dL (2.5-4.9); POTASSIUM 4.4 mmol/L (3.5-5.1); TOTAL PROTEIN, SERUM 6.7 g/dL (6.4-8.2)
--- NOTE | 2017-03-09 06:23 | NUR ---
ICU/RN- NO ACUTE DISTRESS. PT RESTING COMFORTABLY IN BED. ALL NEEDS ATTENDED AND MET. WILL ENDORSE TO AM SHIFT FOR CONTINUATION OF CARE.
--- NOTE | 2017-03-09 07:30 | NUR ---
RN NOTES RECEIVED PT RESTING IN BED, AWAKE ALERT ORIENTED TO NAME AND PLACE, APPEARS TO BE FORGETFUL, SHOWING V-PACING ON ENVIRONMENTAL SERVICES LEAD, NOT ON ANY ACUTE DISTRESS. DENIES PAIN/DISCOMFORT, FC INTACT, PATENT CONNECTED TO CLOSED SYSTEM. REPOSITIONED FOR COMFORT, SAFETY MAINTAINED, KEPT PT COMFORTABLE, CALL LIGHT WITHIN REACH
[2017-03-09] MEDS: CARBIDOPA/LEVODOPA 10/100 MG 1 UDTAB PO SCH ×3 (08:47→17:07)
[2017-03-09] MEDS: PANTOPRAZOLE 40 MG VIAL IV SCH (08:47)
[2017-03-09] MEDS: LEVOTHYROXINE SODIUM 137 MCG TABLET PO SCH (08:47)
[2017-03-09] MEDS: AMIODARONE HCL 200 MG TABLET PO SCH (08:49)
[2017-03-09] MEDS: CLOTRIMAZOLE 1% 15 GM TUBE TP SCH ×2 (08:50→17:08)
[2017-03-09] MEDS: APIXABAN 2.5 MG TABLET PO SCH (08:54)
--- NOTE | 2017-03-09 09:00 | NUR ---
RN NOTES SPOKE WITH DR ARCHULETA, REPORTED PT HAD EPISODE OF BLACK TARRY STOOL EARLIER THIS MORNING, LATEST H/H REPORTED 8.12/09.
[2017-03-09] MEDS ORDERED: BUMETANIDE INJ 4 MG in IV NS 0.9% 24 ML IV ONE (09:30)
[2017-03-09] MEDS: IPRATROPIUM NEB FS 0.5 MG/2.5 ML AMPUL.NEB NEB PRN ×2 (13:12→21:16)
[2017-03-09] MEDS ORDERED: LEVOFLOXACIN 250 MG /D5W 50 ML 250 MG in PREMIX 1 EA IV SCH (14:00)
--- NOTE | 2017-03-09 15:05 | NUR ---
RN NOTES RECEIVED A CALL FROM YANNICK HUFFMAN POSITIVE FOR MRSA NARES, FARHAN SMITH MD AWARE. CALLED [facility] FOR ISOLATION CART
[2017-03-09 18:07] LABS: HEMATOCRIT 24 % (39-51); HEMOGLOBIN 7.7 g/dL (13.5-17.5); LYMPHOCYTES # (AUTO) 0.9 /CMM (0.8-4.8); LYMPHOCYTES % (AUTO) 5.7 % (20.0-44.0); MEAN CORPUSCULAR HEMOGLOBIN 32 PG (26.0-33.0); MEAN CORPUSCULAR HGB CONC 32 g/dl (31.0-36.0); MEAN CORPUSCULAR VOLUME 100 fL (80-96); MONOCYTES # (AUTO) 1.5 /CMM (0.1-1.30); NEUTROPHILS # (AUTO) 14.2 /CMM (1.8-8.9); NEUTROPHILS % (AUTO) 85.3 % (43.0-81.0); PLATELET COUNT (AUTO) 228 /CMM (150-450); RDW COEFFICIENT OF VARIATION 16.7 (11.5-15.0); RED BLOOD CELL COUNT(AUTO) 2.42 MIL/uL (4.5-6.0); WHITE BLOOD COUNT (AUTO) 16.7 K/uL (4.3-11.0)
--- NOTE | 2017-03-09 18:24 | NUR ---
RN NOTES PT TRANSFERRED TO3W, TRANSPORTED VIA [employer] BED, VS STABLE. REPORT GIVEN TO ROSA FU FOR CONTINUITY OF CARE. ALL DUE MEDS GIVEN, NEEDS ATTENDED AND MET. PT MONITORED ACCORDINGLY
--- NOTE | 2017-03-09 18:30 | NUR ---
RECEIVED PT. VIA BED TO RM.329.IN ISOLATION FOR MRSA.F/C TO GRV. DRAINAGE. VS STABLE. ALERT AND ORIENTED X2.SKIN WARM AND DRY-NO COMPLAINTS OFFERED.
--- NOTE | 2017-03-09 18:35 | NUR ---
HOOKED UP TO TELE V-PACING RATE OF 103.
--- NOTE | 2017-03-09 19:45 | NUR ---
PUBLIC AID ELIGIBILITY ASSISTANT - INITIAL NOTES PATIENT IN BED CURRENTLY ASLEEP. NO S/S OF SOB OR ANY DISCOMFORT NOTED. PATIENT ON 2LNC WITH GOOD SATURATION. BED IN LOW POSITION AND LOCKED. SIDERAILS X2 UP WILL CONTINUE TO MONITOR PATIENT. WILL CALL DR. ARCHULETA REGARDING PATIENT'S H/H 7.06/06. AWAITING CALL BACK
--- NOTE | 2017-03-09 21:00 | NUR ---
FLOOR LAYER TILE - NOTES DR. ARCHULETA ORDERED 1 UNIT OF PRBC TO BE TRANSFUSED NOW. BLOOD CONSENT WAS ATTAINED FROM YOSELIN SZYMANSKI. WILL TRANSFUSE ONCE THE BLOOD IS READY.
[2017-03-09] MEDS: MUPIROCIN OINT 2% 22 GM TUBE SCH (21:09)
[2017-03-09] MEDS ORDERED: BLOOD IV SET 1 EA INFUS.SET MC ONE (23:00)
[2017-03-09] MEDS ORDERED: IV NS 0.9% 250 ML IV ONE (23:00)
[2017-03-10] VITALS (11 sets, daily range): BP systolic 106–151; BP diastolic 51–89
--- NOTE | 2017-03-10 | NUR ---
POWER LINEMAN - NOTES 1ST BLOOD THAT WAS ISSUED WAS RETURNED TO THE BLOOD BANK SINCE WE CANNOT SCAN THE "PRODUCT" BARCODE. SPOKE TO OSEI AND SHE SAID SHE WILL TYPE AND SCREEN A NEW ONE FOR THE PATIENT. PER OSEI, SHE WILL CALL ME BACK IF THE NEXT BLOOD WILL BE READY.
--- NOTE | 2017-03-10 00:30 | NUR ---
RETAIL SOLAR ADVISOR - NOTES RECEIVED A CALL FROM OSEI (BLOOD BANK), 1ST UNIT OF PRBC IS READY
--- NOTE | 2017-03-10 00:50 | NUR ---
BLOOD TRANSFUSION STARTED 1 UNIT OF PRBC. PATIENT IN NO DISTRESS. VS WNL. WILL CONTINUE TO MONITOR PATIENT
[2017-03-10] MEDS: ALBUTEROL FS 2.5 MG/3 ML VIAL.NEB NEB SCH ×4 (00:59→20:01)
[2017-03-10] MEDS: IPRATROPIUM NEB FS 0.5 MG/2.5 ML AMPUL.NEB NEB PRN ×2 (00:59→08:14)
--- NOTE | 2017-03-10 04:00 | NUR ---
1 UNIT OF PRBC FINISHED TRANSFUSING WITH NO ADVERSE EFFECTS. WILL CONTINUE TO MONITOR PATIENT.
--- NOTE | 2017-03-10 06:43 | NUR ---
UNIT OPERATOR - CLOSING NOTES PATIENT REMAINS STABLE. NO S/S OF SOB OR ANY DISCOMFORT NOTED. TELE READING OF V-PACING 79. 1 UNIT OF PRBC TRANSFUSED LAST NIGHT. NO SIGNS OF BLEEDING NOTED. WILL ENDORSE TO MORNING NURSE FOR CONTINUITY OF CARE.
[2017-03-10 07:35] LABS: BASOPHILS % (AUTO) 0.2 % (0.0-2.0); EOSINOPHILS % (AUTO) 0.2 % (0.0-6.0); HEMATOCRIT 27 % (39-51); HEMOGLOBIN 8.8 g/dL (13.5-17.5); LYMPHOCYTES # (AUTO) 0.7 /CMM (0.8-4.8); LYMPHOCYTES % (AUTO) 6.6 % (20.0-44.0); MEAN CORPUSCULAR HEMOGLOBIN 32 PG (26.0-33.0); MEAN CORPUSCULAR HGB CONC 32 g/dl (31.0-36.0); MEAN CORPUSCULAR VOLUME 100 fL (80-96); MONOCYTES # (AUTO) 0.8 /CMM (0.1-1.30); NEUTROPHILS # (AUTO) 9.6 /CMM (1.8-8.9); PLATELET COUNT (AUTO) 207 /CMM (150-450); RDW COEFFICIENT OF VARIATION 18.4 (11.5-15.0); RED BLOOD CELL COUNT(AUTO) 2.74 MIL/uL (4.5-6.0); WHITE BLOOD COUNT (AUTO) 11.1 K/uL (4.3-11.0)
[2017-03-10 07:50] LABS: CALCIUM, SERUM 8.3 mg/dL (8.5-10.1); CREATININE 2.4 mg/dL (0.6-1.3); MAGNESIUM 3.2 mg/dL (1.8-2.4); PHOSPHORUS 5.5 mg/dL (2.5-4.9); POTASSIUM 3.9 mmol/L (3.5-5.1)
--- NOTE | 2017-03-10 08:00 | NUR ---
ELEVATED BUN REPORTED TO PRODUCTION MACHINE COMPUTER OPERATOR, WITH NO NEW ORDER AT THIS TIME. WILL CONTINUE TO MONITOR.
--- NOTE | 2017-03-10 08:30 | NUR ---
RN AM NOTES RECEIVED PATIENT IN BED, ASLEEP BUT EASILY AROUSABLE. AT BEDSIDE. NO COMPLAINTS OF SOB, PAIN OR DISTRESS. IN STABLE CONDITION, ASKING FOR WATER. ALL NEEDS MET, CALL LIGHT WITHIN REACH, 2 1/2 SIDERAILS UP FOR SAFETY. WILL CONTINUE TO MONITOR.
[2017-03-10] MEDS: LEVOTHYROXINE SODIUM 137 MCG TABLET PO SCH (09:34)
[2017-03-10] MEDS: PANTOPRAZOLE 40 MG VIAL IV SCH (09:35)
[2017-03-10] MEDS: AMIODARONE HCL 200 MG TABLET PO SCH (09:35)
[2017-03-10] MEDS: methylPREDNISolone SOD SUCC 125 MG/2ML VIAL IV SCH ×2 (09:36→17:00)
[2017-03-10] MEDS: MUPIROCIN OINT 2% 22 GM TUBE SCH ×2 (09:57→21:07)
[2017-03-10] MEDS: Z GUARD REMEDY 2 OZ OINT TP PRN (09:57)
[2017-03-10] MEDS ORDERED: MEROPENEM 500 MG in IV NS 0.9% 50 ML IV SCH (10:00)
[2017-03-10] MEDS: CARBIDOPA/LEVODOPA 10/100 MG 1 UDTAB PO SCH ×3 (10:16→17:00)
[2017-03-10] MEDS ORDERED: IV NS 0.9% 250 ML IV ONE (11:25)
[2017-03-10] MEDS ORDERED: IV SET PRIMARY PUMP SET 1 EA INFUS.SET MC ONE (11:25)
[2017-03-10] MEDS ORDERED: SECONDARY IV SET 1 EA INFUS.SET MC ONE (11:25)
[2017-03-10] MEDS: CLOTRIMAZOLE 1% 15 GM TUBE TP SCH ×2 (11:42→15:55)
[2017-03-10] MEDS: MEROPENEM 500 MG in IV NS 0.9% 50 ML IV SCH ×2 (11:43→20:32)
--- NOTE | 2017-03-10 12:15 | NUR ---
ELEVATED BLOOD GLUCOSE BEFORE LUNCH, ICE DELIVERY DRIVER AWARE, NO NEW ORDER AT THIS TIME. PATIENT TAKING SOLUMEDROL AND WILL BE TAKING BOWEL PREP FOR POSSIBLY COLONOSCOPY IN AM.
[2017-03-10] MEDS ORDERED: PEG 3350/NA SULF,BICARB,CL/KCL 4,000 ML BOTTLE PO ONE (13:30)
--- NOTE | 2017-03-10 18:57 | NUR ---
RN PM NOTES PATIENT REFUSED AFTERNOON AND EVENING MEDS BECAUSE HE STATES "HE FEELS FULL." PATIENT STARTED ON GO LYTELY THIS AFTERNOON FOR SURGERY PREP, AM COLONOSCOPY. PATIENT IN STABLE CONDITION, WILL ENDORSE TO NEXT SHIFT.
--- NOTE | 2017-03-10 19:25 | NUR ---
RN NOTES RECEIVED PT ASLEEP EASILY AROUSABLE, HOB ELEVATED, NO SOB, NO SIGNS OF DISTRESS AND DISCOMFORT NOTED, TOLERATING O2 INHALATION AT 2LPM VIA NC WITH GOOD SATURATION. PT DENIES ANY PAIN AND DISCOMFORT AT THIS TIME. IV ACCESS ON BOTH AC PATENT AND INTACT. BEY CATH INTACT WITH CLEAR YELLOW URINE OUTPUT. OFFERED GOLYTELY IN PREP FOR TOMORROWS EGD AND COLONOSCOPY. KEPT COMFORTABLE AND ATTENDED. WILL CONTINUE TO MONITOR PT.
--- NOTE | 2017-03-10 21:15 | NUR ---
RN NOTES ALL DUE MEDS GIVEN. GOLYTELY OFFERED Q30 MIN, PT ABLE TO TOLERATE 150 ML EVERY TIME IT WAS OFFERED AND TOLERATED WELL, WILL CONTINUE TO OFFER.
--- NOTE | 2017-03-10 23:10 | NUR ---
RN NOTES SPOKE TO DR ARCHULETA, MADE HIM AWARE PT JUST HAD ALMOST A LITER OF GOLYTELY WITH NO CLEAR BOWEL MOVEMENT. PER MD CONTINUE TO OFFER UNTIL MIDNIGHT THEN NPO.
[2017-03-11] MEDS: ALBUTEROL FS 2.5 MG/3 ML VIAL.NEB NEB SCH ×4 (02:05→19:38)
[2017-03-11 04:31] VITALS: BP 115/66
--- NOTE | 2017-03-11 06:48 | NUR ---
RN NOTES CALLED DR ARCHULETA, MADE HIM AWARE PT HAD 2 EPISODE OF SOFT BLACK STOOL AND KEPT PT NPO AFTER MIDNIGHT ORDERED. NEW ORDER RECEIVED, TAP WATER ENEMA UNTIL CLEAR. PT MADE AWARE.
--- NOTE | 2017-03-11 07:25 | NUR ---
RN NOTES PT AWAKE, HOB ELEVATED, NO SOB, NO SIGNS OF DISTRESS AND DISCOMFORT NOTED. VITAL SIGNS STABLE, AFEBRILE. NO COMPLAIN OF PAIN, NO EPISODE OF NAUSEA AND VOMITING. PLACED PT ON NPO AFTER MIDNIGHT FOR EGD AND COLONOSCOPY. KEPT PT CLEAN AND DRY. WILL DO TAP WATER ENEMA UNTIL CLEAR. ENDORSED TO MORNING RN FOR CONTINUITY OF CARE.
[2017-03-11 08:00] VITALS: BP 112/59
[2017-03-11 08:12] LABS: BASOPHILS % (AUTO) 0.3 % (0.0-2.0); EOSINOPHILS % (AUTO) 0.3 % (0.0-6.0); HEMATOCRIT 27 % (39-51); HEMOGLOBIN 8.9 g/dL (13.5-17.5); LYMPHOCYTES # (AUTO) 2.2 /CMM (0.8-4.8); LYMPHOCYTES % (AUTO) 21.1 % (20.0-44.0); MEAN CORPUSCULAR HEMOGLOBIN 33 PG (26.0-33.0); MEAN CORPUSCULAR HGB CONC 33 g/dl (31.0-36.0); MEAN CORPUSCULAR VOLUME 99 fL (80-96); MONOCYTES # (AUTO) 1.2 /CMM (0.1-1.30); MONOCYTES % (AUTO) 11.7 % (2.0-12.0); NEUTROPHILS % (AUTO) 66.6 % (43.0-81.0); PLATELET COUNT (AUTO) 211 /CMM (150-450); RDW COEFFICIENT OF VARIATION 17.6 (11.5-15.0); RED BLOOD CELL COUNT(AUTO) 2.75 MIL/uL (4.5-6.0); WHITE BLOOD COUNT (AUTO) 10.5 K/uL (4.3-11.0)
[2017-03-11] MEDS: CARBIDOPA/LEVODOPA 10/100 MG 1 UDTAB PO SCH ×3 (08:46→17:35)
[2017-03-11] MEDS: AMIODARONE HCL 200 MG TABLET PO SCH (08:46)
[2017-03-11] MEDS: LEVOTHYROXINE SODIUM 137 MCG TABLET PO SCH (08:46)
--- NOTE | 2017-03-11 08:47 | NUR ---
RN AM NOTES PATIENT RECEIVED IN STABLE CONDITION, PRE-OP CARE RENDERED, TAP WATER ENEMA GIVEN. CONSENTS SIGNED AND CHECKLIST COMPLETE. PROCEDURE TO BE DONE AT BEDSIDE. NPO AFTER MIDNIGHT MEDS PER ORDER. NO SOB, DISTRESS OR PAIN NOTED. WILL CONTINUE TO MONITOR.
[2017-03-11] MEDS: predniSONE 20 MG TABLET PO SCH (09:00)
[2017-03-11 09:12] LABS: CREATININE 2.1 mg/dL (0.6-1.3); MAGNESIUM 2.9 mg/dL (1.8-2.4); PHOSPHORUS 2.9 mg/dL (2.5-4.9); POTASSIUM 3.8 mmol/L (3.5-5.1)
[2017-03-11] MEDS: PANTOPRAZOLE 40 MG VIAL IV SCH (10:22)
[2017-03-11] MEDS: MEROPENEM 500 MG in IV NS 0.9% 50 ML IV SCH ×2 (10:22→21:31)
[2017-03-11] MEDS: CLOTRIMAZOLE 1% 15 GM TUBE TP SCH ×2 (10:23→17:36)
[2017-03-11] MEDS: MUPIROCIN OINT 2% 22 GM TUBE SCH ×2 (10:23→21:31)
--- NOTE | 2017-03-11 11:45 | NUR ---
REST OF GOLYTELY FINISHED, 2 TAP WATER ENEMAS GIVEN, WITH SMALL BOWEL MOVEMENT. WILL GIVE ENEMAS UNTIL CLEAR ORDERED.
--- NOTE | 2017-03-11 13:00 | NUR ---
INFORMED OR NURSE THAT PATIENT IS STILL NOT WITH CLEAR ENEMA. WILL ADMINISTER ENEMA AGAIN ORDERED.
--- NOTE | 2017-03-11 15:42 | NUR ---
ADMINISTERED LAST ENEMA ORDERED; STILL NOT CLEAR. MD AWARE, CANCELLED PROCEDURE FOR TODAY, WILL RESCHEDULE FOR TOMORROW AM. CONTINUE ORDERS AND PUT PATIENT ON CLEAR LIQUID DIET. WILL CONTINUE TO MONITOR.
[2017-03-11 16:00] VITALS: BP 121/55
[2017-03-11] MEDS ORDERED: PEG 3350/NA SULF,BICARB,CL/KCL 4,000 ML BOTTLE PO ONE (16:30)
--- NOTE | 2017-03-11 16:53 | NUR ---
BLOOD SUGAR=99, NO INSULIN NEEDED PER SLIDING SCALE. WILL CONTINUE TO MONITOR.
--- NOTE | 2017-03-11 17:00 | NUR ---
INFORMED BY THAT PROCEDURE WILL BE RESCHEDULED FOR TOMORROW AT 11AM. WILL CARRY OUT ORDERS PRESCRIBED. WILL CONTINUE TO MONITOR.
--- NOTE | 2017-03-11 18:19 | NUR ---
PHARMACY BROUGHT UP MEDICATION JUST NOW, STARTED ADMINISTRATION, WILL ENDORSE TO NEXT SHIFT.
--- NOTE | 2017-03-11 18:37 | NUR ---
RN PM NOTES PATIENT IN BED IN STABLE CONDITION, RESTING AFTER CLEAR LIQUID DINNER, FINISHED 100%. STARTED BOWEL PREP FOR PROCEDURE TOMORROW MORNING AT 11AM. AWARE, ALSO LEFT MESSAGE TO RECONFIRM TIME. ALSO WITH ORDERS FOR TAP WATER ENEMA UNTIL CLEAR. LAST TAP WATER ENEMA GIVEN THIS AFTERNOON WAS STILL DARK, STOOL COLOR. MD AWARE. WILL ENDORSE TO NEXT SHIFT.
--- NOTE | 2017-03-11 19:40 | NUR ---
MS/RN NOTES RECEIVED PT. LYING IN BED. AWAKE, ALERT AND ORIENTED X2. BREATHING EVEN AND UNLABORED ON 2LPM O2 VIA NC. NO SOB, RESPIRATORY DISTRESS OR COMPLAINTS OF PAIN NOTED AT THIS TIME. PT. WITH RIGHT AC 18 GAUGE IV SALINE LOCK PRESENT, PATENT AND INTACT. PT. WITH LEFT AC 20 GAUGE IV SALINE LOCK PRESENT, PATENT AND INTACT. PT. WITH BEY CATHETER PRESENT, PATENT AND INTACT DRAINING CLEAR YELLOW URINE. BED IN LOWEST POSITION, CALL LIGHT WITHIN REACH. SPOKE WITH DAYSHIFT CERTIFIED MEDICAL BILLER SARKIS, PER KUMAR, HE SPOKE WITH NURSING FRUIT PITTER ARLEY AND WAS TOLD PT. WILL BE SCHEDULED FOR COLONOSCOPY ON TUESDAY. KEEP PT. CLEAR LIQUID DIET BOWEL PREP WILL BEGIN TUESDAY NIGHT. WILL CONTINUE TO MONITOR.
[2017-03-11 20:00] VITALS: BP 123/58
[2017-03-11] MEDS ORDERED: SECONDARY IV SET 1 EA INFUS.SET MC ONE (21:30)
[2017-03-11] MEDS ORDERED: IV SET PRIMARY PUMP SET 1 EA INFUS.SET MC ONE (21:30)
[2017-03-11] MEDS ORDERED: IV NS 0.9% 250 ML IV ONE (21:30)
[2017-03-12] MEDS: ALBUTEROL FS 2.5 MG/3 ML VIAL.NEB NEB SCH ×4 (01:01→19:59)
--- NOTE | 2017-03-12 06:34 | NUR ---
MS/RN NOTES PT. LYING IN BED RESTING. BREATHING EVEN AND UNLABORED ON 3LPM O2 VIA NC. NO SOB, RESPIRATORY DISTRESS OR COMPLAINTS OF PAIN NOTED AT THIS TIME AND THROUGHOUT SHIFT. PT. WITH RIGHT AC 18 GAUGE IV SALINE LOCK PRESENT, PATENT AND INTACT. PT. WITH LEFT AC 20 GAUGE IV SALINE LOCK PRESENT, PATENT AND INTACT. PT. WITH BEY CATHETER PRESENT, PATENT AND INTACT. EMPTIED 750ML CLEAR YELLOW URINE. BED IN LOWEST POSITION, CALL LIGHT WITHIN REACH. WILL ENDORSE TO [facility] NURSE FOR CONTINUITY OF CARE. Addendum: 03/12/17 at 0647 by WALTER LOPEZ RN ALL PT. NEEDS MET. PT. OFFLOADED. TURNED AND REPOSITIONED Q2H AND NEEDED.
[2017-03-12 06:50] LABS: BASOPHILS # (AUTO) 0.1 /CMM (0.0-0.2); BASOPHILS % (AUTO) 1.2 % (0.0-2.0); EOSINOPHILS # (AUTO) 0.1 /CMM (0.0-0.7); EOSINOPHILS % (AUTO) 0.9 % (0.0-6.0); HEMATOCRIT 28 % (39-51); HEMOGLOBIN 9.1 g/dL (13.5-17.5); LYMPHOCYTES # (AUTO) 1.6 /CMM (0.8-4.8); MEAN CORPUSCULAR HEMOGLOBIN 32 PG (26.0-33.0); MEAN CORPUSCULAR HGB CONC 32 g/dl (31.0-36.0); MEAN CORPUSCULAR VOLUME 101 fL (80-96); MONOCYTES # (AUTO) 0.9 /CMM (0.1-1.30); MONOCYTES % (AUTO) 10.3 % (2.0-12.0); NEUTROPHILS # (AUTO) 6.1 /CMM (1.8-8.9); NEUTROPHILS % (AUTO) 69.6 % (43.0-81.0); PLATELET COUNT (AUTO) 215 /CMM (150-450); RED BLOOD CELL COUNT(AUTO) 2.81 MIL/uL (4.5-6.0); WHITE BLOOD COUNT (AUTO) 8.8 K/uL (4.3-11.0)
[2017-03-12 07:02] LABS: CALCIUM, SERUM 8.1 mg/dL (8.5-10.1); CREATININE 1.9 mg/dL (0.6-1.3); MAGNESIUM 3.1 mg/dL (1.8-2.4); POTASSIUM 4.2 mmol/L (3.5-5.1)
--- NOTE | 2017-03-12 07:30 | NUR ---
RN MS NOTES PT IN BED, RESTING, ALERT AND ORIENTED, NO COMPLAINT OF PAIN, NOT IN DISTRESS, ON O2 AT 2LPM VIA NASAL CANULA, F/C INTACT AND PATENT, DRAINING WELL WITH CLEAR, YELLOW URINE, KEPT WARM AND COMFORTABLE IN BED.
[2017-03-12 08:00] VITALS: BP 119/84
[2017-03-12] MEDS: MEROPENEM 500 MG in IV NS 0.9% 50 ML IV SCH ×2 (08:37→21:53)
[2017-03-12] MEDS: CARBIDOPA/LEVODOPA 10/100 MG 1 UDTAB PO SCH ×3 (08:38→16:55)
[2017-03-12] MEDS: LEVOTHYROXINE SODIUM 137 MCG TABLET PO SCH (08:38)
[2017-03-12] MEDS: PANTOPRAZOLE 40 MG VIAL IV SCH (08:39)
[2017-03-12] MEDS: MUPIROCIN OINT 2% 22 GM TUBE SCH ×2 (08:40→21:54)
[2017-03-12] MEDS: CLOTRIMAZOLE 1% 15 GM TUBE TP SCH ×2 (08:41→16:56)
[2017-03-12] MEDS: AMIODARONE HCL 200 MG TABLET PO SCH (09:00)
--- NOTE | 2017-03-12 13:00 | NUR ---
RN MS NOTES PT IN BED, RESTING, SEEN BY MD, PLAN OF CARE DISCUSSED WITH PT, BREATHING TREATMENT GIVEN BY RT, TURNED AND REPOSITIONED Q2 HRS, KEPT CLEAN, DRY AND COMFORTABLE.
[2017-03-12 16:00] VITALS: BP 123/75
--- NOTE | 2017-03-12 19:20 | NUR ---
MS/RN NOTES RECEIVED PT. LYING IN BED. AWAKE, ALERT AND ORIENTED X2. BREATHING EVEN AND UNLABORED ON 3LPM O2 VIA NC. NO SOB, RESPIRATORY DISTRESS OR COMPLAINTS OF PAIN NOTED AT THIS TIME. PT. WITH RIGHT AC 18 GAUGE IV SALINE LOCK PRESENT, PATENT AND INTACT. PT. WITH LEFT AC 20 GAUGE IV SALINE LOCK PRESENT, PATENT AND INTACT. PT. WITH BEY CATHETER PRESENT, PATENT AND INTACT DRAINING CLEAR YELLOW URINE. BED IN LOWEST POSITION, CALL LIGHT WITHIN REACH. WILL CONTINUE TO MONITOR.
--- NOTE | 2017-03-12 19:27 | NUR ---
PATIENT IN BED RESTING COMFORTABLY, WITH NO C/O PAIN. ALL NEEDS MET, KEPT CLEAN AND DRY, ALL DUE MEDICATIONS GIVEN. PATIENT NOTED WITH INCREASED RESPIRATIONS AND CONGESTION. INFORMED JUAN C PROFESSOR OF ENVIRONMENTAL ENGINEERING WITH NEW ORDERS FOR ALBUTEROL TX Q4PRN AND VENTOLIN 4 PRN. PATIENTS' VITAL SIGNS REMAIN STABLE WITH O2SAT OF 96% ON 3L O2 VIA NC. WILL CONTINUE TO MONITOR.
[2017-03-12] MEDS: IPRATROPIUM NEB FS 0.5 MG/2.5 ML AMPUL.NEB NEB PRN (19:59)
[2017-03-12 20:00] VITALS: BP 114/65
[2017-03-13] MEDS: ALBUTEROL FS 2.5 MG/3 ML VIAL.NEB NEB SCH ×4 (01:28→20:08)
[2017-03-13] MEDS: IPRATROPIUM NEB FS 0.5 MG/2.5 ML AMPUL.NEB NEB PRN (01:29)
--- NOTE | 2017-03-13 06:50 | NUR ---
MS/RN NOTES PT. LYING IN BED RESTING. BREATHING EVEN AND UNLABORED ON 3LPM O2 VIA NC. NO SOB, RESPIRATORY DISTRESS OR COMPLAINTS OF PAIN NOTED AT THIS TIME. PT. WITH RIGHT AC 18 GAUGE IV SALINE LOCK PRESENT, PATENT AND INTACT. PT. WITH LEFT AC 20 GAUGE IV SALINE LOCK PRESENT, PATENT AND INTACT. PT. WITH BEY CATHETER PRESENT, PATENT AND INTACT. EMPTIED 600 ML CLEAR YELLOW URINE. ALL PT. NEEDS MET. PT. OFFLOADED. TURNED AND REPOSITIONED Q2H AND NEEDED. BED IN LOWEST POSITION, CALL LIGHT WITHIN REACH. WILL ENDORSE TO DAYSHIFT NURSE FOR CONTINUITY OF CARE.
--- NOTE | 2017-03-13 07:30 | NUR ---
RN MS NOTES PT IN BED, RESTING, ALERT AND ORIENTED, NO COMPLAINT OF PAIN, NO ACUTE DISTRESS NOTED. ON O2 AT 3LPM VIA NASAL CANULA WITH O2 SAT OF 94%. F/C INTACT AND PATENT, DRAINING WELL WITH CLEAR, YELLOW URINE, KEPT WARM AND COMFORTABLE. IV LINES PATENT, NO REDNESS, BLEEDING, OR SWELLING NOTED.
[2017-03-13 07:49] LABS: BASOPHILS # (AUTO) 0.1 /CMM (0.0-0.2); BASOPHILS % (AUTO) 0.4 % (0.0-2.0); EOSINOPHILS # (AUTO) 0.1 /CMM (0.0-0.7); EOSINOPHILS % (AUTO) 0.5 % (0.0-6.0); HEMATOCRIT 30 % (39-51); HEMOGLOBIN 9.4 g/dL (13.5-17.5); LYMPHOCYTES # (AUTO) 1.2 /CMM (0.8-4.8); LYMPHOCYTES % (AUTO) 10.2 % (20.0-44.0); MEAN CORPUSCULAR HEMOGLOBIN 32 PG (26.0-33.0); MEAN CORPUSCULAR HGB CONC 31 g/dl (31.0-36.0); MEAN CORPUSCULAR VOLUME 102 fL (80-96); MONOCYTES # (AUTO) 0.8 /CMM (0.1-1.30); MONOCYTES % (AUTO) 6.8 % (2.0-12.0); NEUTROPHILS # (AUTO) 9.6 /CMM (1.8-8.9); NEUTROPHILS % (AUTO) 82.1 % (43.0-81.0); PLATELET COUNT (AUTO) 189 /CMM (150-450); RDW COEFFICIENT OF VARIATION 17.6 (11.5-15.0); RED BLOOD CELL COUNT(AUTO) 2.94 MIL/uL (4.5-6.0); WHITE BLOOD COUNT (AUTO) 11.7 K/uL (4.3-11.0)
[2017-03-13 08:00] VITALS: BP 124/68
[2017-03-13 08:24] LABS: CALCIUM, SERUM 8.4 mg/dL (8.5-10.1); CREATININE 1.9 mg/dL (0.6-1.3); MAGNESIUM 3.2 mg/dL (1.8-2.4); PHOSPHORUS 4.1 mg/dL (2.5-4.9); POTASSIUM 4.4 mmol/L (3.5-5.1)
[2017-03-13] MEDS: PANTOPRAZOLE 40 MG VIAL IV SCH (08:34)
[2017-03-13] MEDS: LEVOTHYROXINE SODIUM 137 MCG TABLET PO SCH (08:35)
[2017-03-13] MEDS: predniSONE 20 MG TABLET PO SCH (08:35)
[2017-03-13] MEDS: CARBIDOPA/LEVODOPA 10/100 MG 1 UDTAB PO SCH ×3 (08:35→17:27)
[2017-03-13] MEDS: AMIODARONE HCL 200 MG TABLET PO SCH ×2 (08:36→09:00)
[2017-03-13] MEDS: MUPIROCIN OINT 2% 22 GM TUBE SCH ×2 (08:37→21:17)
[2017-03-13] MEDS: CLOTRIMAZOLE 1% 15 GM TUBE TP SCH ×2 (08:37→17:28)
[2017-03-13] MEDS: MEROPENEM 500 MG in IV NS 0.9% 50 ML IV SCH ×2 (08:43→21:20)
[2017-03-13] MEDS: ALBUTEROL FS 2.5 MG/0.5 ML VIAL.NEB NEB PRN (09:58)
[2017-03-13] MEDS ORDERED: BUMETANIDE INJ 2 MG in IV NS 0.9% 32 ML IV ONE (13:00)
--- NOTE | 2017-03-13 13:39 | NUR ---
RN MS NOTES PATIENT NOTED WITH INCREASED SHORTNESS OF BREATH AND INCREASED RESPIRATORY RATE. PATIENTS' OXYGEN SATURATION DROPPED TO 77% ON 3L VIA CN. RT GAVE PRN NEBULIZER, INCREASED O2 TO 6 L. O2 SAT INCREASED TO 95% AND SHORTNESS OF BREATH IMPROVED. PATIENT EVALUATED BY JUAN C VÁZQUEZ WITH ORDERS FOR STAT CHEST X RAY AND BUMEX X 1 DOSE. PATIENTS' NEEDS MET, KEPT CLEAN AND DRY.
[2017-03-13] MEDS ORDERED: SECONDARY IV SET 1 EA INFUS.SET MC ONE (14:39)
--- NOTE | 2017-03-13 15:45 | NUR ---
RN MS NOTES PT IN BED, RESTING, DENIES PAIN, NOT IN DISTRESS, PER JUAN C PROPERTY SUPERVISOR, OK TO START GOLYTELY AND TAP WATER ENEMA FOR PREP FOR PLANNED COLONOSCOPY TOMORROW, PT AND INFORMED, CONSENT GIVEN BY .
[2017-03-13 16:00] VITALS: BP 124/68
[2017-03-13] MEDS ORDERED: PEG 3350/NA SULF,BICARB,CL/KCL 4,000 ML BOTTLE PO ONE (16:00)
--- NOTE | 2017-03-13 18:51 | NUR ---
RN MS NOTES PT IN BED, RESTING, NOT IN DISTRESS, MONITORED VITALS CLOSELY, TAP WATER ENEMA GIVEN, TOLERATED WELL, STARTED ON GOLYTELY, NOTED WITH BROWNISH WATERY STOOL, PM CARE RENDERED, SEEN BY DR. SHEEHAN, FOR DR. DARLING, INFORMED OF CURRENT LAB RESULTS, KEPT CLEAN, DRY AND COMFORTABLE.
--- NOTE | 2017-03-13 18:57 | NUR ---
MS RN NOTES PATIENT IN BED, RESTING COMFORTABLY, NO ACUTE DISTRESS NOTED, NO SOB, DENIES PAIN, VS STABLE. EVALUATED BY JUAN C VÁZQUEZ WITH NEW ORDER FOR BUMEX IV, NOTED AND CARRIED OUT. BEY CATH PATENT DRAINING WELL WITH. ENEMA ADMINISTERED, PATIENT DRANK APPROXIMATELY 1 LITER OF GOLYTELY. PATIENT WILL BE NPO AFTER MIDNIGHT, FOR COLONOSCOPY IN AM. ALL NEDDS MET, KEPT CLEAN AND DRY.
--- NOTE | 2017-03-13 19:30 | NUR ---
MS RN INITIAL NOTE RECEIVED PT SLEEPING AND EASILY AROUSED, NO COMPLAINT OF PAIN OR RESPIRATORY DISTRESS, ACCORDING TO AM NURSE PT HAD AN EPISODE OF OXYGEN DESATURATION LOW A 70s, PT RECOVERED PROMPTLY AFTER SUCTION WAS PERFORMED WITH A ANTONKADEE, WILL MAINTAIN CLOSE MONITORING OF PT'S SATURATIONS AND PROMOTE PT DEEP BREATHING AND COUGHING TO CLEAR AIRWAY, PT WILL BE REPOSITIONED EVERY TWO HOURS TO PROMOTE COMFORT AND PREVENT SKIN BREAKDOWN, SAFETY MEASURES WILL BE MAINTAINED AT ALL TIMES, NEEDS WILL BE ANTICIPATED AND ATTENDED TO PROMPTLY DURING HOURLY ROUNDS AND NEEDED.
[2017-03-13 20:00] VITALS: BP 116/62
[2017-03-14] MEDS: ALBUTEROL FS 2.5 MG/3 ML VIAL.NEB NEB SCH ×4 (01:43→20:22)
--- NOTE | 2017-03-14 06:40 | NUR ---
MS RN CLOSING NOTE PT REMAINED STABLE DURING AIRCRAFT DESIGNER, EPISODES OF O2 DESATURATION NOTED BUT PT RECOVERS AFTER SUCTION, NO PAIN REPORTED BY PT DURING AT NIGHT, PT REPOSITIONED EVERY 2 HOURS TO PREVENT SKIN BREAKDOWN, CLEAN/DRY AND COMFORTABLE, WILL ENDORSE TO INCOMING NURSE FOR PILLO.
[2017-03-14 07:45] LABS: BASOPHILS # (AUTO) 0.2 /CMM (0.0-0.2); EOSINOPHILS # (AUTO) 0.1 /CMM (0.0-0.7); EOSINOPHILS % (AUTO) 0.5 % (0.0-6.0); HEMATOCRIT 27 % (39-51); HEMOGLOBIN 8.3 g/dL (13.5-17.5); LYMPHOCYTES # (AUTO) 1.1 /CMM (0.8-4.8); LYMPHOCYTES % (AUTO) 6.9 % (20.0-44.0); MEAN CORPUSCULAR HEMOGLOBIN 31 PG (26.0-33.0); MEAN CORPUSCULAR HGB CONC 31 g/dl (31.0-36.0); MEAN CORPUSCULAR VOLUME 103 fL (80-96); MONOCYTES # (AUTO) 0.7 /CMM (0.1-1.30); MONOCYTES % (AUTO) 4.5 % (2.0-12.0); NEUTROPHILS # (AUTO) 13.9 /CMM (1.8-8.9); NEUTROPHILS % (AUTO) 87.1 % (43.0-81.0); PLATELET COUNT (AUTO) 189 /CMM (150-450); RDW COEFFICIENT OF VARIATION 18.1 (11.5-15.0); RED BLOOD CELL COUNT(AUTO) 2.66 MIL/uL (4.5-6.0)
--- NOTE | 2017-03-14 07:45 | NUR ---
RN OPEN NOTES RECEIVED REPORT FROM FUNERAL PLANNING COUNSELOR NURSE. PATIENT IS IN BED. NO SIGNS AND SYMPTOMS OF DISTRESS. BED IN LOW POSITION, LOCKED AND 2 SIDE RAILS ARE UP. WILL CONTINUE TO ASSESS AND MONITOR PATIENT THROUGH OUT MY SHIFT
--- NOTE | 2017-03-14 07:55 | NUR ---
RN NOTES SOLIDWORKS DRAFTER NURSE, LINDA, PUT THE PATIENT ON A SIMPLE MASK 3L. PER SOLIDWORKS DRAFTER NURSE, PATIENT IS A MOUTH BREATHER AND A COPD PATIENT. WILL FOLLOW UP WITH RESPIRATORY THERAPIST FOR BETTER SOLUTION.
[2017-03-14 08:00] VITALS: BP 104/58
[2017-03-14] MEDS: IPRATROPIUM NEB FS 0.5 MG/2.5 ML AMPUL.NEB NEB PRN ×2 (08:04→13:56)
--- NOTE | 2017-03-14 08:10 | NUR ---
PATIENT FOUND ON 3LPM VIA SIMPLE MASK. SWITCHED TO 6LPM VIA NEBULIZER AND MASK AND REPORTED TO NURSE IMMEDIATELY. WILL CONTINUE TO MONITOR.
[2017-03-14 08:12] LABS: CALCIUM, SERUM 8.1 mg/dL (8.5-10.1); MAGNESIUM 2.9 mg/dL (1.8-2.4); PHOSPHORUS 3.9 mg/dL (2.5-4.9); POTASSIUM 4.1 mmol/L (3.5-5.1)
[2017-03-14] MEDS: MEROPENEM 500 MG in IV NS 0.9% 50 ML IV SCH ×2 (09:23→21:35)
[2017-03-14] MEDS: CLOTRIMAZOLE 1% 15 GM TUBE TP SCH ×2 (09:29→17:39)
[2017-03-14] MEDS: PANTOPRAZOLE 40 MG VIAL IV SCH (09:39)
--- NOTE | 2017-03-14 09:45 | NUR ---
RN NOTES / COLONOSCOPY ABG RESULT CAME BACK. DR MARTINEZ CANCELED THE COLONOSCOPY. DR ARCHULETA MADE AWARE. OR MADE AWARE. ABG TO BE REPEATED AT NOON.
[2017-03-14 09:47] LABS: ABG BASE EXCESS 10.5 mmol/L; ABG OXYGEN SATURATION 95.5 % (92.0-98.5); AaDO2 40.2 mmHg; COHb 1.9 % (0.5-1.5); MetHb 0.9 % (0.0-1.5); O2Hb 92.8 % (94.0-97.0); SITE, ABG Right Radial; VENT MODE, BG NASAL CANNULA
--- NOTE | 2017-03-14 10:10 | NUR ---
RT NOTE: LATE ENTRY: PER MD ORDER PATIENT WAS PLACED ON BIPAP WITH NOTED SETTING. ALARMS SET AND AUDIBLE. NT SUCTIONED MODERATE AMOUNT THICK CEE SECRETIONS. WILL CONTINUE TO MONITOR.
[2017-03-14] MEDS: CARBIDOPA/LEVODOPA 10/100 MG 1 UDTAB PO SCH ×3 (11:18→17:00)
[2017-03-14] MEDS: predniSONE 20 MG TABLET PO SCH (11:19)
[2017-03-14] MEDS: LEVOTHYROXINE SODIUM 137 MCG TABLET PO SCH (11:19)
[2017-03-14] MEDS: AMIODARONE HCL 200 MG TABLET PO SCH (11:19)
[2017-03-14] MEDS: MUPIROCIN OINT 2% 22 GM TUBE SCH ×2 (11:24→21:37)
[2017-03-14] MEDS: ACETYLCYSTEINE 10% SOLN 400 MG/4 ML VIAL NEB SCH ×3 (11:50→23:21)
--- NOTE | 2017-03-14 12:03 | NUR ---
RN NOTES PATIENT WAS ON NPO THAT GOT CANCELED AT 1000 DUE TO PROCEDURE CANCELLATION. 0900 SINEMET ADMINISTERED LATE. 1300 SINEMET DOSE SKIPPED
[2017-03-14] MEDS ORDERED: FEE PK DOSING 1 MIN EA MC ONE (12:16)
[2017-03-14] MEDS ORDERED: SECONDARY IV SET 1 EA INFUS.SET MC ONE (12:36)
[2017-03-14 12:44] LABS: ABG BASE EXCESS 12.2 mmol/L; ABG OXYGEN SATURATION 92.5 % (92.0-98.5); ABG PCO2 63.2 mmHg (35.0-45.0); ABG PH 7.404 (7.350-7.450); ABG PO2 62.1 mmHg (75.0-100.0); COHb 2.1 % (0.5-1.5); MetHb 0.8 % (0.0-1.5); O2Hb 89.8 % (94.0-97.0); SITE, ABG Right Radial
[2017-03-14] MEDS: VANCOMYCIN 1.25 GM in IV D5W 500 ML IV SCH (12:44)
[2017-03-14 13:20] LABS: APPEARANCE,URINE CLOUDY (CLEAR); BILIRUBIN,URINE NEGATIVE (NEGATIVE); BLOOD, URINE 1+ Ery/uL (NEGATIVE); COLOR,URINE YELLOW (YELLOW); KETONES,URINE NEGATIVE (NEGATIVE); LEUKOCYTE ESTERASE ,URINE 1+ (NEGATIVE); NITRITE, URINE NEGATIVE (NEGATIVE); PH,URINE 5.5 (5.0-8.0); PROTEIN,URINE 1+ mg/dl (NEGATIVE); UGLUCOSE NEGATIVE (NEGATIVE); UROBILINOGEN,URINE 0.2 EU/dL (0.2)
[2017-03-14 13:32] LABS: ADD URINE CULTURE YES; BACTERIA,URINE Moderate /HPF (None Seen); RBC,URINE 0-3 /HPF (0-2); SQUAMOUS EPITHELIAL CELL,UR Few /HPF (None Seen); WBC,URINE 20-40 /HPF (0-3); YEAST,URINE Many /HPF (None Seen)
--- NOTE | 2017-03-14 13:33 | NUR ---
RN NOTES PAGED JUAN C VÁZQUEZ, PATIENT WAS CHOCKING ON LIQUID. SWALLOW EVAL ORDERED AND NPO.
--- NOTE | 2017-03-14 17:35 | NUR ---
RN NOTES PATIENT IS NPO DUE TO UNABLE TO SWALLOW LIQUID. PENDING SWALLOW EVALUATION. MEDS THAT COULD BE CRUSHED ADMINISTERED TO PATIENT WITH APPLE SOUCE. MEDS THAT COULDN'T BE CRUSHED, RETURNED TO PHARMACY. PATIENT WAS ABLE TO SWALLOW APPLE SAUCE WITHOUT CHOCKING
[2017-03-14] MEDS: LACTOBACILLUS RHAMNOSUS GG 1 EACH CAP.SPRINK PO SCH (17:40)
[2017-03-14 19:13] VITALS: BP 119/68
--- NOTE | 2017-03-14 19:30 | NUR ---
MS RN INITIAL NOTE PT IS WAKE AND ALERT, CURRENTLY ON CPAP BIPAP PER DOCTOR PELEG, NO RESPIRATORY DISTRESS NOTED, PT IS CLEAN/DRY AND COMFORTABLE, COLONOSCOPY THAT WAS SCHEDULE FOR THIS AM WAS CANCELLED DUE TO PT PRESENTING WITH ACIDOSIS, SAFETY MEASURES WILL BE MAINTAINED AT ALL TIMES, NEEDS WILL BE ANTICIPATED AND ATTENDED TO, WILL CONTINUE TO MONITOR CLOSELY.
--- NOTE | 2017-03-14 19:45 | NUR ---
RN CLOSING NOTES REPORT GAVE TO PLATE WORKER NURSE. PATIENT IS ALERT AND ORIENTED X3. IV SITE IS INTACT AND POTENT. BED IN LOW POSITION, LOCKED AND 2 SIDE RAILS ARE UP. PATIENT IS A COPD ON A BIPAP. PATIENT IS NPO DUE TO PENDING SWALLOW EVALUATION. MEDICATION CAN BE GIVEN WITH APPLE SAUCE BUT NOT WATER
[2017-03-14 20:00] VITALS: BP 109/63
[2017-03-15] MEDS: ALBUTEROL FS 2.5 MG/3 ML VIAL.NEB NEB SCH ×4 (02:11→20:15)
--- NOTE | 2017-03-15 03:30 | NUR ---
PT BECAME AGITATED AND TOOK CPAP BIPAP VIOLENTLY OFF, NURSES WERE TRYING TO HELP PT WOULD TRY TO PUNCH AND KICK, ATTEMPTED TO RE-ORIENT PT SEVERAL TIMES UNSUCCESSFULLY, OFFERED TO PROVIDE FOR ANY NEEDS PT WOULD REQUIRE BUT PT CONTINUES TO BE COMBATIVE, OLD COIN DEALER SANDRA GOODMAN MADE AWARE, NEW ORDER RECEIVED FOR BILATERAL SOFT WRIST RESTRAINT AND ATIVAN 0.5MG IV Q6HRS PRN, WILL CONTINUE TO MONITOR CLOSELY.
[2017-03-15] MEDS ORDERED: LORAZEPAM INJ 2 MG/ML VIAL IV PRN (04:00)
--- NOTE | 2017-03-15 07:40 | NUR ---
PT REMAINED STABLE DURING CREDIT RISK ASSOCIATE, WILL ENDORSE TO INCOMING NURSE FOR PILLO.
[2017-03-15 07:42] LABS: BASOPHILS % (AUTO) 0.2 % (0.0-2.0); EOSINOPHILS # (AUTO) 0.1 /CMM (0.0-0.7); EOSINOPHILS % (AUTO) 0.4 % (0.0-6.0); HEMATOCRIT 29 % (39-51); HEMOGLOBIN 9.2 g/dL (13.5-17.5); LYMPHOCYTES # (AUTO) 1.1 /CMM (0.8-4.8); MEAN CORPUSCULAR HEMOGLOBIN 32 PG (26.0-33.0); MEAN CORPUSCULAR HGB CONC 32 g/dl (31.0-36.0); MEAN CORPUSCULAR VOLUME 101 fL (80-96); MONOCYTES # (AUTO) 0.8 /CMM (0.1-1.30); MONOCYTES % (AUTO) 5.6 % (2.0-12.0); NEUTROPHILS # (AUTO) 12.2 /CMM (1.8-8.9); NEUTROPHILS % (AUTO) 85.8 % (43.0-81.0); PLATELET COUNT (AUTO) 185 /CMM (150-450); RDW COEFFICIENT OF VARIATION 17.7 (11.5-15.0); RED BLOOD CELL COUNT(AUTO) 2.85 MIL/uL (4.5-6.0); WHITE BLOOD COUNT (AUTO) 14.3 K/uL (4.3-11.0)
[2017-03-15] MEDS: ACETYLCYSTEINE 10% SOLN 400 MG/4 ML VIAL NEB SCH ×2 (07:57→13:44)
[2017-03-15] MEDS: IPRATROPIUM NEB FS 0.5 MG/2.5 ML AMPUL.NEB NEB PRN ×2 (07:57→13:44)
[2017-03-15 08:00] VITALS: BP 120/66
--- NOTE | 2017-03-15 08:00 | NUR ---
MS RN AM NOTE PT IS WAKE AND ALERT, CURRENTLY ON CPAP BIPAP PER DOCTOR PELEG, BUT CPAP WILL BE REMOVED THIS AM BY R.T AND OBTAIN ABG AFTER.NO RESPIRATORY DISTRESS NOTED, PT IS CLEAN/DRY AND COMFORTABLE, SAFETY MEASURES MAINTAINED AT ALL TIMES, NEEDS WILL BE ANTICIPATED AND ATTENDED TO, WITH BEY CATHETER INTACT AND DRAINING YELLOW URINE WILL CONTINUE TO MONITOR CLOSELY.
[2017-03-15 08:02] LABS: CALCIUM, SERUM 8.4 mg/dL (8.5-10.1); CREATININE 1.8 mg/dL (0.6-1.3); POTASSIUM 3.6 mmol/L (3.5-5.1)
--- NOTE | 2017-03-15 08:10 | NUR ---
PT'S AT BEDSIDE AND REMOVED PT'S RESTRAINT AND WILL MONITOR FOR SAFETY.PT ABLE TO MOVE BUE WITHOUT DIFFICULTY.
[2017-03-15] MEDS: LEVOTHYROXINE SODIUM 137 MCG TABLET PO SCH (09:00)
[2017-03-15] MEDS: predniSONE 20 MG TABLET PO SCH (09:00)
[2017-03-15] MEDS: AMIODARONE HCL 200 MG TABLET PO SCH (09:00)
[2017-03-15] MEDS: LACTOBACILLUS RHAMNOSUS GG 1 EACH CAP.SPRINK PO SCH ×2 (09:00→16:53)
[2017-03-15] MEDS: CARBIDOPA/LEVODOPA 10/100 MG 1 UDTAB PO SCH ×3 (09:00→16:53)
[2017-03-15] MEDS: MEROPENEM 500 MG in IV NS 0.9% 50 ML IV SCH (09:47)
[2017-03-15] MEDS: PANTOPRAZOLE 40 MG VIAL IV SCH (09:47)
[2017-03-15] MEDS: MUPIROCIN OINT 2% 22 GM TUBE SCH ×2 (09:48→22:26)
[2017-03-15] MEDS: CLOTRIMAZOLE 1% 15 GM TUBE TP SCH ×2 (09:48→17:01)
--- NOTE | 2017-03-15 10:20 | NUR ---
SEEN BY Jake VOGEL AND PT STARTED DESATURATING TO 81% WITH APPLE SAUCE EVEN WITH O2 AT 2L/MIN VIA N/C.ABG DONE AND AWAITING FOR RESULTS.PT IS ON NPO INCLUDING MEDS EXCEPT ICE CHIPS WITH ASPIRATION PRECAUTIONS.
[2017-03-15 10:48] LABS: ABG BASE EXCESS 10.4 mmol/L; ABG OXYGEN SATURATION 84.8 % (92.0-98.5); ABG PCO2 59.9 mmHg (35.0-45.0); ABG PH 7.406 (7.350-7.450); ABG PO2 48.9 mmHg (75.0-100.0); ABG TOTAL HEMOGLOBIN 9.8 G/dL (13.5-18.0); AaDO2 80.1 mmHg; COHb 1.6 % (0.5-1.5); MetHb 1.1 % (0.0-1.5); O2Hb 82.5 % (94.0-97.0); SITE, ABG Right Radial
--- NOTE | 2017-03-15 11:00 | NUR ---
PT MADE NO ATTEMPTS OF PULLING HIS TUBINGS AND WAS EATING ICE CHIPS ON HIS OWN.WILL MONITOR.TURNED EVERY TWO HRS.
--- NOTE | 2017-03-15 12:00 | NUR ---
CLARIFIED WITH JASPREET Joseph IF ITS OK TO GIVE ORAL MEDS AND JASPREET STATED THAT PT WAS CHOKING EVEN WITH SMALL AMT OF APPLESAUCE AND WAS LEADING TO DESATURATION TO 81%.WE'LL HOLD ORAL MEDS FOR NOW AND JASPREET WILL CHECK ON THE PT TOMMOROW.
[2017-03-15] MEDS ORDERED: IV NS 0.9% 1,000 ML BAG IV SCH (13:00)
[2017-03-15] MEDS: VANCOMYCIN 1.25 GM in IV D5W 500 ML IV SCH (14:01)
[2017-03-15 16:00] VITALS: BP 114/43
--- NOTE | 2017-03-15 18:00 | NUR ---
PT'S O2 MONITORING SHOWS O2 SAT RANGING 82-85% WHILE PT IS EATING ICE CHIPS. O2 SAT GRADUALLY GOES UP TO 95-96% AT REST OR WHEN ASLEEP.PT REMAINS ON O2 AT 2L/MIN VIA N/C.DENIES ANY DISTRESS OR DISCOMFORT.TURNED EVERY TWO HRS.
--- NOTE | 2017-03-15 18:20 | NUR ---
PT EATING ICE CHIPS WITHOUT ANY RESTRAINTS ON BOTH ARMS.PT MADE NO ATTEMPTS OF PULLING OUT HIS TUBINGS.WILL MONITOR.PT'S LEFT SINCE LUNCH TIME AND PT REMAINS CALM AND COOPERATIVE.
[2017-03-15] MEDS: IV NS 0.9% 1,000 ML IV PRN (18:57)
--- NOTE | 2017-03-15 19:08 | NUR ---
PT WAS EATING ICE CHIPS THE WHOLE SHIFT WITH HOB ELEVATED AND NO COUGHING NOTED.PT TOLERATED WELL.
--- NOTE | 2017-03-15 19:30 | NUR ---
MS RN NOTES PT ALERT AND VERBALLY RESPONSIVE TO STIMULI. DENIES ANY PAIN WHEN ASKED. ON OXYGEN AT 2LPM VIA NC. PT OXYGEN LEVEL AT 90% AT THIS TIME. PER AM SHIFT PT SATURATION GOES DOWN TO 85% AND MD AWARE. NO ACUTE RESP. DISTRESS NOTED. LEFT AC IV ACCESS NOTED, INTACT AND PATENT WITH IVF INFUSING WELL AT 75CC/ HR. LEFT AC IV ACCESS NOTED. INTACT AND PATENT. ON BEY CATHETER, DWELLING WELL. CLEAN AND DRY. ON BARITROY BED, WILL CONTINUE TO MONITOR.
[2017-03-15 20:00] VITALS: BP 129/64
[2017-03-15] MEDS: MEROPENEM 1 G in IV NS 0.9% 100 ML IV SCH (22:26)
--- NOTE | 2017-03-16 | NUR ---
ALL NEEDS ATTENDED PROMPTLY, NURSING CARE RENDERED. WILL CONTINUE TO MONITOR.
[2017-03-16] MEDS: ACETYLCYSTEINE 10% SOLN 400 MG/4 ML VIAL NEB SCH ×4 (00:41→23:25)
[2017-03-16] MEDS: ALBUTEROL FS 2.5 MG/3 ML VIAL.NEB NEB SCH ×4 (00:41→19:57)
--- NOTE | 2017-03-16 06:00 | NUR ---
BEY CATHETER CHANGE. PT TOLERATED IT WELL. DENIES ANY PAIN WHEN ASKED. BEY CATHETER DWELLING WELL.
[2017-03-16] MEDS: IPRATROPIUM NEB FS 0.5 MG/2.5 ML AMPUL.NEB NEB PRN ×2 (07:31→13:53)
--- NOTE | 2017-03-16 07:35 | NUR ---
MS RN NOTES PT RESTING WELL. NO SIGNIFICANT CHANGES NOTED. ALL NEEDS ATTENDED PROMPTLY. WILL ENDORSE TO THE NEXT SHIFT.
[2017-03-16 08:00] VITALS: BP 119/65
--- NOTE | 2017-03-16 08:00 | NUR ---
MS RN AM NOTE PT IS AWAKE AND ALERT, CURRENTLY ON O2 AT 2L/MIN VIA N/C.O2 SAT RANGING FROM 85-95%.DR MARTINEZ AWARE.PT DESATURATES TO 85% WHEN HE EATS AND GOES UP TO 95% WHEN ASLEEP.NO RESPIRATORY DISTRESS NOTED, PT IS CLEAN/DRY AND COMFORTABLE, SAFETY MEASURES MAINTAINED AT ALL TIMES, NEEDS WILL BE ANTICIPATED AND ATTENDED TO, WITH BEY CATHETER INTACT AND DRAINING YELLOW URINE WILL CONTINUE TO MONITOR CLOSELY.
[2017-03-16] MEDS: PANTOPRAZOLE 40 MG VIAL IV SCH (08:40)
[2017-03-16] MEDS: predniSONE 20 MG TABLET PO SCH (08:41)
[2017-03-16] MEDS: CARBIDOPA/LEVODOPA 10/100 MG 1 UDTAB PO SCH ×3 (08:41→17:52)
[2017-03-16] MEDS: LACTOBACILLUS RHAMNOSUS GG 1 EACH CAP.SPRINK PO SCH ×2 (08:42→17:52)
[2017-03-16] MEDS: AMIODARONE HCL 200 MG TABLET PO SCH (08:42)
[2017-03-16] MEDS: LEVOTHYROXINE SODIUM 137 MCG TABLET PO SCH (08:42)
[2017-03-16] MEDS: MUPIROCIN OINT 2% 22 GM TUBE SCH ×2 (08:43→22:59)
[2017-03-16] MEDS: CLOTRIMAZOLE 1% 15 GM TUBE TP SCH ×2 (08:44→17:53)
[2017-03-16 08:59] LABS: CALCIUM, SERUM 8.3 mg/dL (8.5-10.1); CREATININE 1.5 mg/dL (0.6-1.3); POTASSIUM 4.8 mmol/L (3.5-5.1)
[2017-03-16] MEDS: MEROPENEM 1 G in IV NS 0.9% 100 ML IV SCH ×2 (09:48→21:17)
[2017-03-16] MEDS: VANCOMYCIN 1.25 GM in IV D5W 500 ML IV SCH (13:11)
[2017-03-16 16:00] VITALS: BP 112/64
--- NOTE | 2017-03-16 17:00 | NUR ---
PT ON O2 AT 2L/MIN VIA N/C AND WAS DESATURATING TO 71% OFTEN.PT WAS STILL VERBALLY RESPONSIVE AND ALERT WHEN TALKED TO.SUCTIONED SECRETIONS WITH MINIMAL WHITE SECRETIONS OBTAINED.Dylan CAMPBELL NOTIFIED.PT PLACED ON BIPAP AND WITH O2 SAT OF 95%.WILL PLACE PT ON O2 CANNULA WHEN WE FEED HIM DINNER.
[2017-03-16] MEDS: IV NS 0.9% 1,000 ML IV PRN (17:55)
--- NOTE | 2017-03-16 19:03 | NUR ---
PT STILL ON O2 CANNULA AT 4L/MIN WITH O2 SAT OF 95%.PT HAS NO S/S OF PAIN OR DISTRESS.BEY OUTPUT OF 500 ML YELLOW URINE.
--- NOTE | 2017-03-16 19:20 | NUR ---
MS/SERVER SUPPORT TECHNICIAN; RECEIVED PT REPORTS FROM THE DAY SHIFT RN FOR CONTINUITY OF CARE. AT THIS TIME PT IS SLEEPING. HOB ELEVATED. WITH O2 4L NC ON. NO S/S OF DISTRESS. IVF ON PROGRESS ON RAC. FC INTACT WITH 50 ML YELLOW URINE. PT ON CONTACT ISOLATION. BED ON LOWER POSITION AND LOCKED FOR SAFETY. SIDE RAILS ARE UP FOR SAFETY. CON TINUE TO MONITOR CALL LIGHT WITHIN REACH.
[2017-03-16 20:00] VITALS: BP 125/68
--- NOTE | 2017-03-16 20:40 | NUR ---
MS/TWISTING FRAME FIXER; RT STARTED THE BI PAP. WITH O2 SAT 98 %.
[2017-03-16] MEDS ORDERED: BUMETANIDE INJ 4 MG in IV NS 0.9% 24 ML IV ONE (21:00)
[2017-03-17] MEDS: ALBUTEROL FS 2.5 MG/3 ML VIAL.NEB NEB SCH ×4 (02:22→20:21)
[2017-03-17] MEDS ORDERED: IV SET PRIMARY PUMP SET 1 EA INFUS.SET MC ONE (03:08)
--- NOTE | 2017-03-17 03:15 | NUR ---
MS/MECHANICAL MANUFACTURING TECHNICIAN; NOTED PT WITH HR 39 AND IT IS FLUCTUATING . CHARGE NURSE INFORMED AND SHE SAID TO CALL MD. I NOTIFIED ANDREZ CUETO NP AND I TOLD HIM PT WITH HR 39. HE ORDERED EKG NOW AND FOLLOW UP WITH MD. I TOLD CHARGE NURSE WITH THE ORDER.
--- NOTE | 2017-03-17 03:45 | NUR ---
MS/CENA; EKG DONE AND CHARGE NURSE SAW THE RESULT AND SHE INFORMED THE MOTION PICTURE NARRATOR.
--- NOTE | 2017-03-17 04:00 | NUR ---
O2 SAT 95 % , HR 74. PT IS AWKAKE AND RESPONSIVE.
--- NOTE | 2017-03-17 05:30 | NUR ---
MS/GREENSTONE POLISHER OPERATOR; RT CAME AND CHECKED THE PT. STILL ON BI PAP. NOTED ALSO DURING THE NIGH PT DESATURATED.
--- NOTE | 2017-03-17 07:00 | NUR ---
MS/PROTECTIVE SIGNAL INSTALLER HELPER; STILL WITH THE BI PAP ON. IVF ON PROGRESS. TURNED AND REPOSITIONED.
--- NOTE | 2017-03-17 07:30 | NUR ---
MS RN AM NOTE PT IN BED, ASLEEP, BUT AROUSES TO NAME AND TOUCH, ALERT AND ORIENTED X 2-3, STILL ON BI PAP WITH SETTING ORDERED, NOT IN ANY DISTRESS, NO SOB, RESPIRATION UNLABORED. DENIES PAIN, LCW PM V PACING. RT AC G18 WITH NS AT 75 ML/HR INFUSING, LEFT AC G22 FLUSHES WELL, BOTH SITES CLEAR. PUREED DIET. BEY CATH IN PLACE WITH BEY CATH IN PLACE DRAINING ADEQUATE AMOUNT OF YELLOW COLORED URINE, SEE NURSING FLOWSHEET FOR SKIN ISSUES. ON BARIMAXX BED, HEAD OF BED UP, BED LOW/LOCKED, CALL LIGHT WITHIN REACH. WILL CONT TO MONITOR.
[2017-03-17 08:00] VITALS: BP 111/59
[2017-03-17] MEDS: ACETYLCYSTEINE 10% SOLN 400 MG/4 ML VIAL NEB SCH ×3 (08:21→20:21)
[2017-03-17] MEDS: AMIODARONE HCL 200 MG TABLET PO SCH (09:00)
--- NOTE | 2017-03-17 09:30 | NUR ---
MS RN NOTES ADMINISTERED DUE MEDS EXCEPT CORDARONE. PER NIGH SHIFT PATIENT'S AR RANGED FROM 39 -47
[2017-03-17] MEDS: predniSONE 20 MG TABLET PO SCH (09:57)
[2017-03-17] MEDS: LEVOTHYROXINE SODIUM 137 MCG TABLET PO SCH (09:57)
[2017-03-17] MEDS: LACTOBACILLUS RHAMNOSUS GG 1 EACH CAP.SPRINK PO SCH ×2 (09:57→17:40)
[2017-03-17] MEDS: CARBIDOPA/LEVODOPA 10/100 MG 1 UDTAB PO SCH ×3 (09:57→17:54)
[2017-03-17] MEDS: PANTOPRAZOLE 40 MG VIAL IV SCH (09:58)
[2017-03-17] MEDS: MEROPENEM 1 G in IV NS 0.9% 100 ML IV SCH ×2 (09:58→20:59)
[2017-03-17] MEDS: MUPIROCIN OINT 2% 22 GM TUBE SCH ×2 (10:20→21:00)
[2017-03-17] MEDS: CLOTRIMAZOLE 1% 15 GM TUBE TP SCH ×2 (10:20→17:41)
[2017-03-17 11:15] LABS: CALCIUM, SERUM 8.8 mg/dL (8.5-10.1); CREATININE 1.8 mg/dL (0.6-1.3); MAGNESIUM 1.9 mg/dL (1.8-2.4); PHOSPHORUS 2.6 mg/dL (2.5-4.9); POTASSIUM 3.3 mmol/L (3.5-5.1)
[2017-03-17 11:30] LABS: BASOPHILS % (AUTO) 0.2 % (0.0-2.0); EOSINOPHILS # (AUTO) 0.2 /CMM (0.0-0.7); EOSINOPHILS % (AUTO) 1.9 % (0.0-6.0); HEMATOCRIT 30 % (39-51); HEMOGLOBIN 9.4 g/dL (13.5-17.5); LYMPHOCYTES # (AUTO) 1.2 /CMM (0.8-4.8); LYMPHOCYTES % (AUTO) 11.9 % (20.0-44.0); MEAN CORPUSCULAR HEMOGLOBIN 32 PG (26.0-33.0); MEAN CORPUSCULAR HGB CONC 32 g/dl (31.0-36.0); MEAN CORPUSCULAR VOLUME 100 fL (80-96); MONOCYTES # (AUTO) 0.9 /CMM (0.1-1.30); MONOCYTES % (AUTO) 8.4 % (2.0-12.0); NEUTROPHILS # (AUTO) 7.9 /CMM (1.8-8.9); NEUTROPHILS % (AUTO) 77.6 % (43.0-81.0); PLATELET COUNT (AUTO) 246 /CMM (150-450); RDW COEFFICIENT OF VARIATION 17.5 (11.5-15.0); RED BLOOD CELL COUNT(AUTO) 2.93 MIL/uL (4.5-6.0); WHITE BLOOD COUNT (AUTO) 10.2 K/uL (4.3-11.0)
[2017-03-17] MEDS ORDERED: SECONDARY IV SET 1 EA INFUS.SET MC ONE ×3 (12:40→20:59)
[2017-03-17] MEDS: VANCOMYCIN 1.25 GM in IV D5W 500 ML IV SCH (12:40)
[2017-03-17] MEDS: FLUCONAZOLE (100 MG) 100 MG TABLET PO SCH (12:40)
--- NOTE | 2017-03-17 12:40 | NUR ---
MS FU NOTES STARTED VANCO IV. Addendum: 03/17/17 at 1532 by CAMILLA WALLACE RN NO VANCO TROUGH YET RELEASED. PATIENT FOR TRANSFER TO [facility]. VANCO TROUGH RESULT RELEASED WHILE PATIENT WAS BEING PREPARED AND TRANSFERRED TO [facility].
--- NOTE | 2017-03-17 12:40 | NUR ---
MS FU NOTES STARTED DANELLE CUENCA. PER DR. LELIA COLIN - TRANSFER TO [facility]. Addendum: 03/17/17 at 1318 by JEFF AGUILAR RN TRANSFER TO [facility] TO CONTINUE BIPAP USE.
--- NOTE | 2017-03-17 13:20 | NUR ---
MS RN NOTES REPORT GIVEN TO DAMON.
[2017-03-17] MEDS ORDERED: POTASSIUM CHLORIDE 20 MEQ TAB.PRT.SR PO ONE (13:30)
[2017-03-17] MEDS ORDERED: BUMETANIDE INJ 2 MG in IV NS 0.9% 32 ML IV ONE (13:30)
[2017-03-17] MEDS: IV D5W 1,000 ML IV PRN (13:36)
--- NOTE | 2017-03-17 13:40 | NUR ---
MS RN NOTES PATIENT TRANSFERRED TO 117-1, [facility]/TELE. REPORT GIVEN TO SARANYA MCKINNEY.
[2017-03-17 20:00] VITALS: BP_SYST 114; BP_DIAS 53; BP_DIAS 58
--- NOTE | 2017-03-17 20:00 | NUR ---
andrea rn notes received pts on bed awake and responsive, on tele v-pacing 72 on the monitor ,no sob no distress noted .v/s stable afebrile no facial grimaces noted , on rac g#18 and left ac g#22 intact and patent with ivf of d5w at 60cc/hr infusing well.f/c intact and patent draining with yellowish urine output .on 3liters of o2 via nc sating 95%.all due med given as ordered, all needs anticipated ,kept pts clean dry and comfortable.on contact isolation mrsa nares and esbl urine all precautionary measures observed. will continue to monitor pts.
[2017-03-17] MEDS: IPRATROPIUM NEB FS 0.5 MG/2.5 ML AMPUL.NEB NEB PRN (20:21)
--- NOTE | 2017-03-17 22:00 | NUR ---
TANK DF CHANGE OF ASSIGNMENT I ASSUMED CARE OF PT @2200. PHYSICAL ASSESSMENT COMPLETED NO ACUTE CHANGES NOTED FROM PREVIOUS ASSESSMENT.
[2017-03-18] VITALS: BP_SYST 106; BP_SYST 114; BP_DIAS 51; BP_DIAS 53
--- NOTE | 2017-03-18 00:22 | NUR ---
RN DF PT WITH NOCTURNAL BIPAP SUPPORT PLACED ON BIPAP SETTINGS OF I/E 28/03 RATE OF 12 [id number]% PT TOLERATING BIPAP SUPPORT WELL,VSS,NAD NOTED.
[2017-03-18] MEDS: ALBUTEROL FS 2.5 MG/3 ML VIAL.NEB NEB SCH ×4 (01:22→20:02)
[2017-03-18 04:00] VITALS: BP 101/58
--- NOTE | 2017-03-18 07:30 | NUR ---
RN NOTES RECEIVED PATIENT IN BED ALERT, AWAKE, ORIENTED X2 WITH BREATHING NORMAL, EVEN AND UNLABORED. NO SOB NOTED. NO ACUTE DISTRESS NOTED. ON 3L O2 VIA NC, TOLERATED WELL. DENIES ANY PAIN OR DISCOMFORT. TELE MONITOR REVEALS V PACING WITH PVC, HR=90. IV RAC AND LAC ARE PATENT AND INTACT, NO INFILTRATION NOTED. BOWEL SOUND PRESENT. PULSES PRESENT. SAFETY MEASURE OBSERVED. ALL NEEDS ATTENDED. CALL LIGHT WITH IN REACH. WILL CONT TO MONITOR.
[2017-03-18] MEDS: ACETYLCYSTEINE 10% SOLN 400 MG/4 ML VIAL NEB SCH ×3 (07:33→23:21)
[2017-03-18 07:38] LABS: BASOPHILS % (AUTO) 0.1 % (0.0-2.0); EOSINOPHILS # (AUTO) 0.1 /CMM (0.0-0.7); EOSINOPHILS % (AUTO) 1.5 % (0.0-6.0); HEMATOCRIT 26 % (39-51); HEMOGLOBIN 8.5 g/dL (13.5-17.5); LYMPHOCYTES # (AUTO) 1.7 /CMM (0.8-4.8); LYMPHOCYTES % (AUTO) 18.3 % (20.0-44.0); MEAN CORPUSCULAR HEMOGLOBIN 32 PG (26.0-33.0); MEAN CORPUSCULAR HGB CONC 33 g/dl (31.0-36.0); MEAN CORPUSCULAR VOLUME 99 fL (80-96); MONOCYTES # (AUTO) 0.9 /CMM (0.1-1.30); MONOCYTES % (AUTO) 9.6 % (2.0-12.0); NEUTROPHILS # (AUTO) 6.7 /CMM (1.8-8.9); NEUTROPHILS % (AUTO) 70.5 % (43.0-81.0); PLATELET COUNT (AUTO) 230 /CMM (150-450); RDW COEFFICIENT OF VARIATION 16.8 (11.5-15.0); RED BLOOD CELL COUNT(AUTO) 2.63 MIL/uL (4.5-6.0); WHITE BLOOD COUNT (AUTO) 9.5 K/uL (4.3-11.0)
[2017-03-18 07:59] LABS: CREATININE 1.8 mg/dL (0.6-1.3); MAGNESIUM 1.7 mg/dL (1.8-2.4); PHOSPHORUS 2.8 mg/dL (2.5-4.9); POTASSIUM 3.6 mmol/L (3.5-5.1)
[2017-03-18 08:00] VITALS: BP_SYST 102; BP_SYST 97; BP_DIAS 41; BP_DIAS 42
[2017-03-18 08:12] LABS: CALCIUM, SERUM 8.4 mg/dL (8.5-10.1)
[2017-03-18] MEDS: LEVOTHYROXINE SODIUM 137 MCG TABLET PO SCH (09:53)
[2017-03-18] MEDS: predniSONE 20 MG TABLET PO SCH (09:53)
[2017-03-18] MEDS: LACTOBACILLUS RHAMNOSUS GG 1 EACH CAP.SPRINK PO SCH ×2 (09:53→16:20)
[2017-03-18] MEDS: PANTOPRAZOLE 40 MG VIAL IV SCH (09:53)
[2017-03-18] MEDS: AMIODARONE HCL 200 MG TABLET PO SCH (09:53)
[2017-03-18] MEDS: CARBIDOPA/LEVODOPA 10/100 MG 1 UDTAB PO SCH ×3 (09:53→16:20)
[2017-03-18] MEDS: FLUCONAZOLE (100 MG) 100 MG TABLET PO SCH (09:53)
[2017-03-18] MEDS: MEROPENEM 1 G in IV NS 0.9% 100 ML IV SCH ×2 (09:57→20:23)
[2017-03-18] MEDS: CLOTRIMAZOLE 1% 15 GM TUBE TP SCH ×2 (09:58→16:21)
[2017-03-18] MEDS: MUPIROCIN OINT 2% 22 GM TUBE SCH ×2 (09:58→20:34)
[2017-03-18 10:49] LABS: ABG BASE EXCESS 14.2 mmol/L; ABG OXYGEN SATURATION 92.4 % (92.0-98.5); ABG PH 7.469 (7.350-7.450); ABG TOTAL HEMOGLOBIN 9.4 G/dL (13.5-18.0); AaDO2 97.6 mmHg; COHb 1.2 % (0.5-1.5); MetHb 0.9 % (0.0-1.5); O2Hb 90.5 % (94.0-97.0); SITE, ABG Right Radial; VENT MODE, BG Nasal Cannula
[2017-03-18 12:00] VITALS: BP_SYST 120; BP_SYST 128; BP_DIAS 64
[2017-03-18] MEDS ORDERED: Magnesium 1GM/D5W 100ML PREMIX 100 ML IV SCH (12:30)
[2017-03-18] MEDS ORDERED: SECONDARY IV SET 1 EA INFUS.SET MC ONE (13:06)
[2017-03-18] MEDS: IV D5W 1,000 ML IV PRN (13:15)
--- NOTE | 2017-03-18 14:10 | NUR ---
TANK NOTES RELAYED EKG RESULTS TO DR WELLS WITH NNO. WILL CONT TO MONITOR. Addendum: 03/18/17 at 1745 by RACHEL WILLS RN ABG RESULTS NOT EKG RESULTS.
[2017-03-18 16:00] VITALS: BP 124/59
[2017-03-18] MEDS: BUMETANIDE (1 MG) 1 MG TABLET PO SCH (16:21)
--- NOTE | 2017-03-18 19:11 | NUR ---
RN NOTES PATIENT ENDORSED TO NEXT SHIFT IN STABLE CONDITION FOR CONTINUITY OF CARE. NO SIGNIFICANT CHANGES NOTED. KEPT CLEAN, DRY AND COMFORTABLE. ALL NEEDS ATTENDED. CALL LIGHT WITH IN REACH. SAFETY MEASURE OBSERVED. WILL CONT TO MONITOR.
--- NOTE | 2017-03-18 19:30 | NUR ---
RN INITIAL NOTE; PT ON THE BED RESTING WITHOUT ANY DISTRESS , A/O X 2-3 , CONFUSE. BREATHING EVEN AND UNLABORED ON 3 LPM VIA NC , SHOWING V PACING 111 ON TELE MONITOR , RAC 18 G AND LAC 22 G INTACT AND PATENT . DENIED ANY PAIN AT THIS TIME . F/C INTACT AND DRAINING YELLOWISH URINE .BED IN THE LOWEST/LOCKED POSITION, SAFETY MEASURES APPLIED. CALL LIGHT WITHIN REACH. WILL CONTINUE TO MONITOR.
[2017-03-18 20:00] VITALS: BP_SYST 135; BP_SYST 91; BP_DIAS 61; BP_DIAS 81
[2017-03-18] MEDS: HYDROCODONE/APAP 5/325MG 1 EACH TABLET PO PRN (20:24)
--- NOTE | 2017-03-18 20:25 | NUR ---
RN NOTE; PRN NORCO 5/325 PO GIVEN FOR PAIN 05/23 , TOLERATED WELL AT THIS TIME, WILL CONTINUE TO MONITOR .
[2017-03-18] MEDS ORDERED: VANCOMYCIN 1 GM in IV D5W 250 ML IV SCH (21:00)
[2017-03-18] MEDS: ATORVASTATIN 40 MG TABLET PO SCH (21:20)
--- NOTE | 2017-03-18 23:00 | NUR ---
RN NOTE; PT ON NIGHT TIME BIPAP AT THIS TIME , WILL CONTINUE TO MONITOR .
[2017-03-19] VITALS (8 sets, daily range): BP systolic 100–137; BP diastolic 51–97
--- NOTE | 2017-03-19 00:30 | NUR ---
RN NOTE; PT NOTED WITH INCREASED HR 145 MAX ON AND OFF . V- PACING IN TELE MONITOR . PRN PO NORCO AND ATIVAN 0.5 MG IV GIVEN NEEDED . . PT IS ASYMPTOMATIC, BP -137/85 , TEMP- 97.5 , RR-21, 02 SAT 97% . DENIED ANY CP . COMMERCIAL HVAC SERVICE TECHNICIAN JUAN C INFORMED , RECEIVED NEW ORDER TO CHECK STAT TROPONIN AND EKG , ORDER NOTED AND CARRIED OUT.
[2017-03-19] MEDS: ALBUTEROL FS 2.5 MG/3 ML VIAL.NEB NEB SCH ×4 (01:37→19:29)
[2017-03-19] MEDS: IPRATROPIUM NEB FS 0.5 MG/2.5 ML AMPUL.NEB NEB PRN ×3 (01:38→13:12)
--- NOTE | 2017-03-19 01:47 | NUR ---
RN NOTE; RE. INCREASED TROPONIN GOLF SALES ASSOCIATE FERMENTATION SCIENTIST JUAN C RELAYED ABOUT TROPONIN RESULT 0.232 , EKG RESULT , RECEIVED ORDER FOR TROPONIN LEVEL AFTER 6 HRS AND CONTINUE TO MONITOR .
[2017-03-19 06:38] LABS: BASOPHILS # (AUTO) 0.1 /CMM (0.0-0.2); BASOPHILS % (AUTO) 1.3 % (0.0-2.0); EOSINOPHILS % (AUTO) 0.3 % (0.0-6.0); HEMATOCRIT 29 % (39-51); HEMOGLOBIN 9.3 g/dL (13.5-17.5); LYMPHOCYTES % (AUTO) 10.8 % (20.0-44.0); MEAN CORPUSCULAR HEMOGLOBIN 32 PG (26.0-33.0); MEAN CORPUSCULAR HGB CONC 32 g/dl (31.0-36.0); MEAN CORPUSCULAR VOLUME 99 fL (80-96); MONOCYTES # (AUTO) 0.8 /CMM (0.1-1.30); NEUTROPHILS # (AUTO) 7.5 /CMM (1.8-8.9); NEUTROPHILS % (AUTO) 79.6 % (43.0-81.0); PLATELET COUNT (AUTO) 259 /CMM (150-450); RDW COEFFICIENT OF VARIATION 17.2 (11.5-15.0); WHITE BLOOD COUNT (AUTO) 9.4 K/uL (4.3-11.0)
[2017-03-19 07:02] LABS: CALCIUM, SERUM 8.8 mg/dL (8.5-10.1); CREATININE 1.8 mg/dL (0.6-1.3); MAGNESIUM 2.1 mg/dL (1.8-2.4); PHOSPHORUS 4.3 mg/dL (2.5-4.9); POTASSIUM 4.6 mmol/L (3.5-5.1)
[2017-03-19 07:10] LABS: TROPONIN I 0.246 ng/mL (0.00-0.056)
[2017-03-19] MEDS: ACETYLCYSTEINE 10% SOLN 400 MG/4 ML VIAL NEB SCH ×3 (07:16→23:39)
--- NOTE | 2017-03-19 07:17 | NUR ---
RN EOS NOTE; PT ON BED WITHOUT ANY DISTRESS , V-PACING WITH STABLE HR 70s 80s AT THIS TIME . ALL NEEDS ATTENDED PROMPTLY. REPOSITIONED Q2H , SKIN CARE RENDERED. SAFETY MEASURES APPLIED. CALL LIGHT WITHIN REACH.ENDORSED TO DAY SHIFT NURSE FOR CONTINUITY OF CARE.
--- NOTE | 2017-03-19 07:31 | NUR ---
PLACED ON 3 LPM O2 FLOW VIA NASAL CANNULA Addendum: 03/19/17 at 0803 by DIYA ENGLISH RT Amended: Links added.
[2017-03-19] MEDS: PANTOPRAZOLE 40 MG VIAL IV SCH (08:19)
[2017-03-19] MEDS: VANCOMYCIN 1 GM in IV D5W 250 ML IV SCH (08:19)
[2017-03-19] MEDS: AMIODARONE HCL 200 MG TABLET PO SCH ×2 (08:20→16:40)
[2017-03-19] MEDS: BUMETANIDE (1 MG) 1 MG TABLET PO SCH (08:20)
[2017-03-19] MEDS: FLUCONAZOLE (100 MG) 100 MG TABLET PO SCH (08:21)
[2017-03-19] MEDS: LACTOBACILLUS RHAMNOSUS GG 1 EACH CAP.SPRINK PO SCH ×2 (08:21→16:40)
[2017-03-19] MEDS: CARBIDOPA/LEVODOPA 10/100 MG 1 UDTAB PO SCH ×3 (08:21→16:39)
[2017-03-19] MEDS: LEVOTHYROXINE SODIUM 137 MCG TABLET PO SCH (08:21)
[2017-03-19] MEDS: predniSONE 20 MG TABLET PO SCH (08:21)
[2017-03-19] MEDS: CLOTRIMAZOLE 1% 15 GM TUBE TP SCH ×2 (08:22→16:41)
[2017-03-19] MEDS: MUPIROCIN OINT 2% 22 GM TUBE SCH ×2 (08:22→21:11)
[2017-03-19] MEDS ORDERED: SECONDARY IV SET 1 EA INFUS.SET MC ONE ×2 (08:29→10:50)
[2017-03-19] MEDS ORDERED: AMIODARONE HCL 200 MG TABLET PO ONE (09:30)
[2017-03-19] MEDS ORDERED: AMIODARONE 150 MG in IV D5W 100 ML IV ONE (09:30)
[2017-03-19] MEDS: MEROPENEM 1 G in IV NS 0.9% 100 ML IV SCH ×2 (10:00→21:10)
[2017-03-19] MEDS: acetaZOLAMIDE 250 MG TABLET PO SCH (10:59)
[2017-03-19] MEDS ORDERED: CEFEPIME 1 GM in IV D5W 50 ML IV SCH (14:00)
--- NOTE | 2017-03-19 19:50 | NUR ---
CAPACITOR INSPECTOR INITIAL NOTES PT IS IN BED, A/O X3, NO COMPLAINS OF PAIN, ABLE TO MAKE NEEDS KNOWN. ON INHALATION TREATMENT, TOLERATING IT WELL, NO RESPIRATORY DISTRESS, NO SOB NOTED, ON TELE MONITOR V PACING AFIB, ASYMPTOMATIC, R AC AND L AC IV SITES FLUSHED AND PATENT, NO S/SX OF INFECTION NOTED. BEY CATH IS DRAINING YELLOW URINE. ON BEDREST, TURNED AND REPOSITIONED, BED LOCKED AND IN LOWEST POSITION, CALL LIGHTS WITHIN REACH.
[2017-03-19] MEDS: ATORVASTATIN 40 MG TABLET PO SCH (21:10)
[2017-03-20] VITALS (7 sets, daily range): BP systolic 90–122; BP diastolic 49–90
[2017-03-20] MEDS: ALBUTEROL FS 2.5 MG/3 ML VIAL.NEB NEB SCH ×4 (00:58→19:47)
[2017-03-20] MEDS ORDERED: IV NS 0.9% 250 ML IV ONE (03:30)
[2017-03-20] MEDS ORDERED: IV SET PRIMARY PUMP SET 1 EA INFUS.SET MC ONE (03:30)
[2017-03-20 06:57] LABS: BASOPHILS % (AUTO) 0.2 % (0.0-2.0); HEMATOCRIT 27 % (39-51); HEMOGLOBIN 8.7 g/dL (13.5-17.5); LYMPHOCYTES % (AUTO) 10.5 % (20.0-44.0); MEAN CORPUSCULAR HEMOGLOBIN 32 PG (26.0-33.0); MEAN CORPUSCULAR HGB CONC 32 g/dl (31.0-36.0); MEAN CORPUSCULAR VOLUME 99 fL (80-96); MONOCYTES # (AUTO) 0.7 /CMM (0.1-1.30); MONOCYTES % (AUTO) 7.2 % (2.0-12.0); NEUTROPHILS # (AUTO) 7.8 /CMM (1.8-8.9); NEUTROPHILS % (AUTO) 82.1 % (43.0-81.0); PLATELET COUNT (AUTO) 245 /CMM (150-450); RDW COEFFICIENT OF VARIATION 16.9 (11.5-15.0); RED BLOOD CELL COUNT(AUTO) 2.75 MIL/uL (4.5-6.0); WHITE BLOOD COUNT (AUTO) 9.4 K/uL (4.3-11.0)
[2017-03-20 07:16] LABS: CALCIUM, SERUM 8.7 mg/dL (8.5-10.1); CREATININE 1.9 mg/dL (0.6-1.3); POTASSIUM 4.5 mmol/L (3.5-5.1)
--- NOTE | 2017-03-20 07:33 | NUR ---
VALVE MACHINE OPERATOR INITIAL NOTES NO SIGNIFICANT CHANGES OVERNIGHT, TOLERATED CPAP BIPAP AT PM, SAT 95%, NOW AT NASAL CANNULA @3LPM. PT IS AFEBRILE, NO SOB NOTED. IV SITES IS PATENT, NO S/SX OF INFECTION/INFILTRATION NOTED. BEY IS DRAINING YELLOW URINE SIDERAILS UP, BEDLOCKED AND IN LOWEST POSITION,ALL SAFETY MEASURES MAINTAINED, CALL LIGHT WITHIN REACH. ENDORSED TO AM NURSE FOR CONTINUATION OF CARE.
[2017-03-20] MEDS: ACETYLCYSTEINE 10% SOLN 400 MG/4 ML VIAL NEB SCH ×3 (07:36→23:29)
--- NOTE | 2017-03-20 08:11 | NUR ---
RN AM NOTES RECEIVED PATIENT IN STABLE CONDITION, ALERT AND ORIENTED X2. TOLERATING MEDICATIONS AND TREATMENTS WELL. WILL CONTINUE TO MONITOR.
[2017-03-20] MEDS: MUPIROCIN OINT 2% 22 GM TUBE SCH ×2 (09:00→21:00)
[2017-03-20] MEDS: LACTOBACILLUS RHAMNOSUS GG 1 EACH CAP.SPRINK PO SCH ×2 (10:03→17:26)
[2017-03-20] MEDS: AMIODARONE HCL 200 MG TABLET PO SCH ×2 (10:03→17:27)
[2017-03-20] MEDS: BUMETANIDE (1 MG) 1 MG TABLET PO SCH (10:03)
[2017-03-20] MEDS: LEVOTHYROXINE SODIUM 137 MCG TABLET PO SCH (10:03)
[2017-03-20] MEDS: predniSONE 20 MG TABLET PO SCH (10:04)
[2017-03-20] MEDS: acetaZOLAMIDE 250 MG TABLET PO SCH (10:04)
[2017-03-20] MEDS: CARBIDOPA/LEVODOPA 10/100 MG 1 UDTAB PO SCH ×3 (10:04→17:26)
[2017-03-20] MEDS: CARVEDILOL 3.125 MG TABLET PO SCH ×2 (10:04→21:14)
[2017-03-20] MEDS: PANTOPRAZOLE 40 MG VIAL IV SCH (10:04)
[2017-03-20] MEDS: CLOTRIMAZOLE 1% 15 GM TUBE TP SCH ×3 (10:05→22:54)
[2017-03-20] MEDS: MEROPENEM 1 G in IV NS 0.9% 100 ML IV SCH ×2 (10:06→22:54)
--- NOTE | 2017-03-20 13:00 | NUR ---
PATIENT REFUSED MED AFTER OFFERING THREE TIMES BECAUSE HE STATES "I AM TIRED, CAN WE DO IT LATER?" WILL ADMINISTER MED LATER PER PATIENT REQUEST.
--- NOTE | 2017-03-20 13:15 | NUR ---
PAGED AND TEXTED DR TO CONFIRM DISCHARGE TIME X 3. PATIENT AWARE. AWAITING RESPONSE FOR POTENTIAL DISCHARGE ORDERS. Addendum: 03/20/17 at 1316 by NELSON KEMP RN ERROR, WRONG PATIENT
--- NOTE | 2017-03-20 13:30 | NUR ---
PATIENT REFUSED MED AGAIN, REQUESTED TO JUST TAKE 5PM DOSE. EXPLAINED RISKS AND BENEFITS, PATIENT STILL REFUSED. WILL ADMINISTER DURING 5PM MED PASS. WILL CONTINUE TO MONITOR.
--- NOTE | 2017-03-20 19:00 | NUR ---
RN PM NOTES PATIENT RESTING IN BED, TOLERATED MEDICATIONS WELL. ALERT AND ORIENTED X2-3, NO SOB, PAIN OR DISTRESS NOTED. WILL ENDORSE TO NEXT SHIFT.
[2017-03-20] MEDS: IPRATROPIUM NEB FS 0.5 MG/2.5 ML AMPUL.NEB NEB PRN (19:47)
[2017-03-20] MEDS: VANCOMYCIN 1 GM in IV D5W 250 ML IV SCH (20:59)
[2017-03-20] MEDS: HYDROCODONE/APAP 5/325MG 1 EACH TABLET PO PRN (21:13)
[2017-03-20] MEDS: ATORVASTATIN 40 MG TABLET PO SCH (21:14)
[2017-03-20] MEDS: ALBUTEROL FS 2.5 MG/0.5 ML VIAL.NEB NEB PRN (23:29)
[2017-03-21] VITALS (7 sets, daily range): BP systolic 94–117; BP diastolic 55–79
[2017-03-21] MEDS: ALBUTEROL FS 2.5 MG/3 ML VIAL.NEB NEB SCH ×4 (01:21→19:58)
[2017-03-21] MEDS ORDERED: IV NS 0.9% 250 ML IV ONE (04:36)
--- NOTE | 2017-03-21 04:59 | NUR ---
ALL [facility] MEDS CLEARED FOR PT'S SAFETY
--- NOTE | 2017-03-21 07:13 | NUR ---
IN FILE OPERATOR CLOSING NOTES NO SIGNIFICANT CHANGES OVERNIGHT, TOLERATED CPAP BIPAP AT PM, TOLERATING CURRENT SETTINGS, PT IS AFEBRILE, NO RESPIRATORY DISTRESS NOTED. RIGHT FA IV SITE IS PATENT, NO S/SX OF INFECTION/INFILTRATION NOTED. BEY IS DRAINING YELLOW URINE SIDERAILS UP, BEDLOCKED AND IN LOWEST POSITION,ALL SAFETY MEASURES MAINTAINED, CALL LIGHT WITHIN REACH. ENDORSED TO AM NURSE FOR CONTINUATION OF CARE.
[2017-03-21 07:21] LABS: BASOPHILS % (AUTO) 0.2 % (0.0-2.0); EOSINOPHILS % (AUTO) 0.3 % (0.0-6.0); HEMATOCRIT 27 % (39-51); HEMOGLOBIN 8.7 g/dL (13.5-17.5); LYMPHOCYTES # (AUTO) 1.6 /CMM (0.8-4.8); LYMPHOCYTES % (AUTO) 17.2 % (20.0-44.0); MEAN CORPUSCULAR HEMOGLOBIN 31 PG (26.0-33.0); MEAN CORPUSCULAR HGB CONC 32 g/dl (31.0-36.0); MEAN CORPUSCULAR VOLUME 99 fL (80-96); MONOCYTES # (AUTO) 0.8 /CMM (0.1-1.30); MONOCYTES % (AUTO) 9.3 % (2.0-12.0); NEUTROPHILS # (AUTO) 6.7 /CMM (1.8-8.9); PLATELET COUNT (AUTO) 248 /CMM (150-450); RDW COEFFICIENT OF VARIATION 16.8 (11.5-15.0); RED BLOOD CELL COUNT(AUTO) 2.78 MIL/uL (4.5-6.0); WHITE BLOOD COUNT (AUTO) 9.1 K/uL (4.3-11.0)
[2017-03-21] MEDS: ACETYLCYSTEINE 10% SOLN 400 MG/4 ML VIAL NEB SCH ×3 (07:35→23:47)
[2017-03-21 07:44] LABS: CALCIUM, SERUM 8.4 mg/dL (8.5-10.1); MAGNESIUM 2.2 mg/dL (1.8-2.4); PHOSPHORUS 4.2 mg/dL (2.5-4.9); POTASSIUM 4.6 mmol/L (3.5-5.1)
[2017-03-21] MEDS: CARVEDILOL 3.125 MG TABLET PO SCH ×2 (09:00→21:00)
[2017-03-21] MEDS: LEVOTHYROXINE SODIUM 137 MCG TABLET PO SCH (10:59)
[2017-03-21] MEDS: CARBIDOPA/LEVODOPA 10/100 MG 1 UDTAB PO SCH ×3 (10:59→16:56)
[2017-03-21] MEDS: predniSONE 20 MG TABLET PO SCH (10:59)
[2017-03-21] MEDS: AMIODARONE HCL 200 MG TABLET PO SCH ×2 (11:00→16:56)
[2017-03-21] MEDS: LACTOBACILLUS RHAMNOSUS GG 1 EACH CAP.SPRINK PO SCH ×2 (11:01→16:56)
[2017-03-21] MEDS: PANTOPRAZOLE 40 MG VIAL IV SCH (11:01)
[2017-03-21] MEDS: acetaZOLAMIDE 250 MG TABLET PO SCH (11:01)
[2017-03-21] MEDS: BUMETANIDE (1 MG) 1 MG TABLET PO SCH (11:02)
[2017-03-21] MEDS: CLOTRIMAZOLE 1% 15 GM TUBE TP SCH (16:56)
--- NOTE | 2017-03-21 19:30 | NUR ---
RN INITIAL NOTE RECEIVED PT IN NO ACUTE DISTRESS IN BED. PT IS A/O X 4 AND ABLE TO MAKE NEEDS KNOWN. PT IS ON O2 VIA NC @ 3LPM AND TOLERATING WELL WITH O2 SAT @ 98%. PT HAS BIPAP FOR SLEEP APNEA @ NIGHT. PT IS ON TELE WITH V PACING ON THE MONITOR. PT HAS F/C THAT IS CLEAN DRY AND INTACT WITH YELLOW URINE DRAINING. PT NOT C/O ANY SOB, DIFFICULTY BREATHING OR PAIN AT THIS TIME. PT HAS RAC 18G THAT IS CLEAN DRY INTACT AND PATENT WITH NS @ TKO. BED IN LOW LOCK POSITION WITH RIALS UP X 2. CALL LIGHT WITHIN REACH AND ALL SAFETY MEASURES ENSURED AND CARRIED OUT. WILL CONTINUE TO MONITOR PT.
[2017-03-21] MEDS: MEROPENEM 1 G in IV NS 0.9% 100 ML IV SCH (21:19)
[2017-03-21] MEDS: ATORVASTATIN 40 MG TABLET PO SCH (21:19)
[2017-03-21] MEDS: MUPIROCIN OINT 2% 22 GM TUBE SCH (21:20)
[2017-03-21] MEDS: ALBUTEROL FS 2.5 MG/0.5 ML VIAL.NEB NEB PRN (23:47)
[2017-03-22] VITALS: BP 120/74
[2017-03-22] MEDS: ALBUTEROL FS 2.5 MG/3 ML VIAL.NEB NEB SCH ×4 (01:24→19:34)
[2017-03-22 04:00] VITALS: BP 111/64
--- NOTE | 2017-03-22 06:28 | NUR ---
RN CLOSING NOTE PT REMAINS IN NO ACUTE DISTRESS IN BED. PT DID NOT HAVE ANY SIGNIFICANT CHANGE IN CONDITION. ALL NEEDS MET ALL ORDERS CARRIED OUT. PT TOLERATED BIPAP SETTINGS WELL. WILL ENDORSE TO AM RN FOR CONTINUITY OF CARE.
[2017-03-22 07:14] LABS: BASOPHILS % (AUTO) 0.2 % (0.0-2.0); HEMATOCRIT 27 % (39-51); HEMOGLOBIN 8.9 g/dL (13.5-17.5); LYMPHOCYTES # (AUTO) 0.8 /CMM (0.8-4.8); MEAN CORPUSCULAR HEMOGLOBIN 32 PG (26.0-33.0); MEAN CORPUSCULAR HGB CONC 33 g/dl (31.0-36.0); MEAN CORPUSCULAR VOLUME 99 fL (80-96); MONOCYTES # (AUTO) 0.6 /CMM (0.1-1.30); NEUTROPHILS % (AUTO) 80.8 % (43.0-81.0); PLATELET COUNT (AUTO) 235 /CMM (150-450); RDW COEFFICIENT OF VARIATION 16.1 (11.5-15.0); RED BLOOD CELL COUNT(AUTO) 2.75 MIL/uL (4.5-6.0); WHITE BLOOD COUNT (AUTO) 7.4 K/uL (4.3-11.0)
[2017-03-22 07:35] LABS: CALCIUM, SERUM 8.3 mg/dL (8.5-10.1); CREATININE 1.7 mg/dL (0.6-1.3); MAGNESIUM 2.3 mg/dL (1.8-2.4); PHOSPHORUS 4.3 mg/dL (2.5-4.9); POTASSIUM 4.7 mmol/L (3.5-5.1)
[2017-03-22 08:00] VITALS: BP 97/55
[2017-03-22] MEDS: ACETYLCYSTEINE 10% SOLN 400 MG/4 ML VIAL NEB SCH ×2 (08:11→15:20)
[2017-03-22] MEDS: IPRATROPIUM NEB FS 0.5 MG/2.5 ML AMPUL.NEB NEB PRN ×2 (08:11→15:20)
--- NOTE | 2017-03-22 08:59 | NUR ---
RN note Dr. Colon at nursing station made aware of BP 97/55, HR 73. Dr said ok to administer coreg, amiodarone and bumex along with other scheduled medication at this time. MD aware of CO2 level 40.
[2017-03-22] MEDS: MEROPENEM 1 G in IV NS 0.9% 100 ML IV SCH ×2 (09:07→21:23)
[2017-03-22] MEDS: CLOTRIMAZOLE 1% 15 GM TUBE TP SCH ×2 (09:08→16:27)
[2017-03-22] MEDS: MUPIROCIN OINT 2% 22 GM TUBE SCH ×2 (09:08→21:25)
[2017-03-22] MEDS: PANTOPRAZOLE 40 MG VIAL IV SCH (09:09)
[2017-03-22] MEDS: BUMETANIDE (1 MG) 1 MG TABLET PO SCH (09:09)
[2017-03-22] MEDS: predniSONE 20 MG TABLET PO SCH (09:10)
[2017-03-22] MEDS: acetaZOLAMIDE 250 MG TABLET PO SCH (09:10)
[2017-03-22] MEDS: ASPIRIN 81 MG TAB.CHEW PO SCH (09:10)
[2017-03-22] MEDS: LACTOBACILLUS RHAMNOSUS GG 1 EACH CAP.SPRINK PO SCH ×2 (09:10→16:27)
[2017-03-22] MEDS: CARBIDOPA/LEVODOPA 10/100 MG 1 UDTAB PO SCH ×3 (09:10→16:27)
[2017-03-22] MEDS: CARVEDILOL 3.125 MG TABLET PO SCH ×2 (09:11→21:25)
[2017-03-22] MEDS: AMIODARONE HCL 200 MG TABLET PO SCH ×2 (09:11→16:26)
[2017-03-22] MEDS: LEVOTHYROXINE SODIUM 137 MCG TABLET PO SCH (09:12)
[2017-03-22 12:00] VITALS: BP 95/51
--- NOTE | 2017-03-22 13:14 | NUR ---
rn note Dr. Estevez made aware patient has patchy sore white spots on tongue. ordered nystatin 500,00 TID swish and swallow
[2017-03-22 16:00] VITALS: BP 105/63
[2017-03-22] MEDS: NYSTATIN (PYXIS) 500,000 UNIT/5 ML ORAL.SUSP PO SCH (16:25)
[2017-03-22] MEDS ORDERED: IV NS 0.9% 250 ML IV ONE (17:54)
--- NOTE | 2017-03-22 19:24 | NUR ---
CLOSING NOTE HANDED OFF REPORT TO NIGHT NURSE. PATIENT IN STABLE CONDITION. 2L O2 NC, O2 SAT 97%, NO COMPLICATIONS WITH IV OR F/C. REPOSITIONED PT Q2 HR. NO NEW SKIN BREAK DOWN. DISCUSSED PLAN OF CARE AT LENGTH. LEFT MESSAGE FOR POWER ELECTRONICS RESEARCH ENGINEER FLEX TO DISCUSS FINANCES PER PT REQUEST. CALL LIGHT IN REACH
--- NOTE | 2017-03-22 19:40 | NUR ---
RN OPENING NOTES" RECEIVED PATIENT ON BED AWAKE ALOX2 AND VERBALLY RESPONSIVE ON O2 THERAPY WITH 2LPM TOLERATING WELL. SR ON MONITOR VPACING WITH HR AT 69. NO COMPLAINTS OF PAIN. NOTED PT TO BE ANXIOUS AND ASKED "DO YOU THINK I WILL SURVIVE?" ENCOURAGED VERBALIZATION OF FEELINGS. FOR BIPAP AT HS. IV ACCESS REMAINED INTACT ON LAC G18, PATENT AND INTACT. SAFETY MEASURES ENSURED. CALL LIGHT WITHIN REACH. CONTINUOUSLY MONITORED.
[2017-03-22 20:00] VITALS: BP 107/59
[2017-03-22] MEDS: ATORVASTATIN 40 MG TABLET PO SCH (21:24)
[2017-03-22] MEDS ORDERED: SECONDARY IV SET 1 EA INFUS.SET MC ONE (21:57)
[2017-03-23] VITALS (7 sets, daily range): BP systolic 94–133; BP diastolic 48–70
[2017-03-23] MEDS: ALBUTEROL FS 2.5 MG/3 ML VIAL.NEB NEB SCH ×4 (00:30→20:19)
[2017-03-23] MEDS: ACETYLCYSTEINE 10% SOLN 400 MG/4 ML VIAL NEB SCH ×3 (00:30→14:52)
--- NOTE | 2017-03-23 07:08 | NUR ---
RN NOTES: PT REMAINED IN BED NOT IN DISTRESS. TOLERATING O2 THERAPY WELL AT THIS TIME. REMAINED SR ON MONITOR. SAFETY MEASURES ENSURED. CONTINUOUSLY MONITORED. TO ENDORSE TO AM SHIFT RN
--- NOTE | 2017-03-23 07:18 | NUR ---
RN INITIAL NOTES: Rec'd pt awake on bed, not in any distress, A/O x2-3. Pt on O2 at 2lpm/NC, saturating at 99%, denies SOB. Pt on telemonitoring, V-pacing w/ HR 64 bpm. Has patent & intact FC draining to adequate urine output. Pt has R AC G18, SL, flushed, patent & intact w/ no signs of infection/ infiltration noted. Provided comfort & safety measures. Call light placed w/in reach. Bed kept low & in locked position. Needs attended. Will turn, reposition & offload heels as per protocol. Isolation precaution observed. Will continue to monitor.
[2017-03-23 07:23] LABS: BASOPHILS % (AUTO) 0.2 % (0.0-2.0); EOSINOPHILS % (AUTO) 0.3 % (0.0-6.0); HEMATOCRIT 28 % (39-51); HEMOGLOBIN 8.9 g/dL (13.5-17.5); LYMPHOCYTES # (AUTO) 1.4 /CMM (0.8-4.8); LYMPHOCYTES % (AUTO) 17.3 % (20.0-44.0); MEAN CORPUSCULAR HEMOGLOBIN 31 PG (26.0-33.0); MEAN CORPUSCULAR HGB CONC 32 g/dl (31.0-36.0); MEAN CORPUSCULAR VOLUME 98 fL (80-96); MONOCYTES # (AUTO) 0.7 /CMM (0.1-1.30); MONOCYTES % (AUTO) 8.7 % (2.0-12.0); NEUTROPHILS # (AUTO) 6.2 /CMM (1.8-8.9); NEUTROPHILS % (AUTO) 73.5 % (43.0-81.0); PLATELET COUNT (AUTO) 254 /CMM (150-450); RDW COEFFICIENT OF VARIATION 16.7 (11.5-15.0); RED BLOOD CELL COUNT(AUTO) 2.86 MIL/uL (4.5-6.0); WHITE BLOOD COUNT (AUTO) 8.4 K/uL (4.3-11.0)
[2017-03-23 07:35] LABS: ALBUMIN 2.4 g/dL (3.4-5.0); BILIRUBIN,TOTAL 0.5 mg/dL (0.2-1.0); CALCIUM, SERUM 8.3 mg/dL (8.5-10.1); CREATININE 1.8 mg/dL (0.6-1.3); MAGNESIUM 2.1 mg/dL (1.8-2.4); PHOSPHORUS 3.4 mg/dL (2.5-4.9); POTASSIUM 4.3 mmol/L (3.5-5.1); TOTAL PROTEIN, SERUM 6.1 g/dL (6.4-8.2)
[2017-03-23] MEDS: MEROPENEM 1 G in IV NS 0.9% 100 ML IV SCH ×2 (08:32→21:26)
[2017-03-23] MEDS: LACTOBACILLUS RHAMNOSUS GG 1 EACH CAP.SPRINK PO SCH ×2 (08:34→17:23)
[2017-03-23] MEDS: PANTOPRAZOLE 40 MG VIAL IV SCH (08:34)
[2017-03-23] MEDS: predniSONE 20 MG TABLET PO SCH (08:34)
[2017-03-23] MEDS: NYSTATIN (PYXIS) 500,000 UNIT/5 ML ORAL.SUSP PO SCH ×3 (08:34→17:23)
[2017-03-23] MEDS: acetaZOLAMIDE 250 MG TABLET PO SCH (08:35)
[2017-03-23] MEDS: AMIODARONE HCL 200 MG TABLET PO SCH ×2 (08:35→17:24)
[2017-03-23] MEDS: ASPIRIN 81 MG TAB.CHEW PO SCH (08:35)
[2017-03-23] MEDS: LEVOTHYROXINE SODIUM 137 MCG TABLET PO SCH (08:35)
[2017-03-23] MEDS: BUMETANIDE (1 MG) 1 MG TABLET PO SCH (08:36)
[2017-03-23] MEDS: CARBIDOPA/LEVODOPA 10/100 MG 1 UDTAB PO SCH ×3 (08:36→17:24)
[2017-03-23] MEDS: MUPIROCIN OINT 2% 22 GM TUBE SCH ×2 (08:36→21:27)
[2017-03-23] MEDS: Z GUARD REMEDY 2 OZ OINT TP PRN (08:36)
[2017-03-23] MEDS: CARVEDILOL 3.125 MG TABLET PO SCH ×2 (08:36→21:28)
[2017-03-23] MEDS: CLOTRIMAZOLE 1% 15 GM TUBE TP SCH ×2 (08:37→17:24)
--- NOTE | 2017-03-23 14:53 | NUR ---
Social service consult requested by TANK Leal regarding pt. wanting to speak to SW. MARIA DOLORES met with pt. bedside. Pt. is A&O x 4. Pt. informed SW he resides at [facility], however pt. is expressing wanting to go back home and not to back to the nursing facility. SW informed pt. she will inform complex case manager Odilon regarding him not wanting to go back to [facility]. MARIA DOLORES updated complex case manager Odilon regarding pt. wanting to go back home upon discharge and not longterm.
--- NOTE | 2017-03-23 18:40 | NUR ---
RN CLOSING NOTES: No significant changes noted w/in shift. Pt denies any respiratory distress while on O2 at 2lpm/NC, saturating at 99%. On telemonitoring, still V-pacing w/ HR 68 bpm. FC kept patent & intact draining to adequate urine output. R AC G18, kept patent & intact w/ no signs of infection/ infiltration noted. Kept well rested & comfortable. Call light placed w/in reach. Bed kept low & in locked position. Needs attended. Turned, repositioned & offloaded heels. Isolation precaution observed. Will endorse to PM RN for PILLO.
[2017-03-23] MEDS: ATORVASTATIN 40 MG TABLET PO SCH (21:27)
[2017-03-24] VITALS: BP 112/63
[2017-03-24] MEDS: ACETYLCYSTEINE 10% SOLN 400 MG/4 ML VIAL NEB SCH ×4 (00:02→23:54)
[2017-03-24] MEDS: IPRATROPIUM NEB FS 0.5 MG/2.5 ML AMPUL.NEB NEB PRN ×3 (01:17→13:47)
[2017-03-24] MEDS: ALBUTEROL FS 2.5 MG/3 ML VIAL.NEB NEB SCH ×4 (01:17→19:55)
[2017-03-24 04:00] VITALS: BP 100/82
[2017-03-24 06:55] LABS: BASOPHILS % (AUTO) 0.2 % (0.0-2.0); EOSINOPHILS # (AUTO) 0.1 /CMM (0.0-0.7); EOSINOPHILS % (AUTO) 1.1 % (0.0-6.0); HEMATOCRIT 30 % (39-51); HEMOGLOBIN 9.8 g/dL (13.5-17.5); LYMPHOCYTES % (AUTO) 23.9 % (20.0-44.0); MEAN CORPUSCULAR HEMOGLOBIN 32 PG (26.0-33.0); MEAN CORPUSCULAR HGB CONC 32 g/dl (31.0-36.0); MEAN CORPUSCULAR VOLUME 98 fL (80-96); MONOCYTES # (AUTO) 0.7 /CMM (0.1-1.30); MONOCYTES % (AUTO) 8.5 % (2.0-12.0); NEUTROPHILS # (AUTO) 5.6 /CMM (1.8-8.9); NEUTROPHILS % (AUTO) 66.3 % (43.0-81.0); PLATELET COUNT (AUTO) 263 /CMM (150-450); RDW COEFFICIENT OF VARIATION 16.5 (11.5-15.0); WHITE BLOOD COUNT (AUTO) 8.5 K/uL (4.3-11.0)
[2017-03-24 07:18] LABS: CALCIUM, SERUM 8.7 mg/dL (8.5-10.1); CREATININE 1.7 mg/dL (0.6-1.3); MAGNESIUM 2.2 mg/dL (1.8-2.4); PHOSPHORUS 3.2 mg/dL (2.5-4.9); POTASSIUM 4.2 mmol/L (3.5-5.1)
--- NOTE | 2017-03-24 07:52 | NUR ---
MARINE ENGINEERING CONSULTANT NOTE PATIENT IN BED , ALL NEEDS ATTENDED ,WITH 2L NC, NO SOB NOTED AT THIS TIME , ON TAQUERIA MAX BED FOR SKIN MANAGEMENT, WITH BEY CATH ORDERED WITH YELLOW COLOR URINE , RT AC HL INTACT NO S\S INFECTION NOTED , BED IN LOWEST AND LOCKED POSITION, WITH GTUBE FEEDING ORDERED, KEEP HOB ELEVATED AT ALL TIME NO SOB NOTED AT THIS TIME, WILL CONT TO MONITOR CLOSELY
[2017-03-24 08:00] VITALS: BP 109/49
[2017-03-24] MEDS: LEVOTHYROXINE SODIUM 137 MCG TABLET PO SCH (08:57)
[2017-03-24] MEDS: BUMETANIDE (1 MG) 1 MG TABLET PO SCH (08:57)
[2017-03-24] MEDS: ASPIRIN 81 MG TAB.CHEW PO SCH (08:57)
[2017-03-24] MEDS: acetaZOLAMIDE 250 MG TABLET PO SCH (08:58)
[2017-03-24] MEDS: predniSONE 20 MG TABLET PO SCH (08:58)
[2017-03-24] MEDS: LACTOBACILLUS RHAMNOSUS GG 1 EACH CAP.SPRINK PO SCH ×2 (08:58→16:56)
[2017-03-24] MEDS: CARVEDILOL 3.125 MG TABLET PO SCH ×2 (08:58→21:00)
[2017-03-24] MEDS: PANTOPRAZOLE 40 MG VIAL IV SCH (08:59)
[2017-03-24] MEDS: AMIODARONE HCL 200 MG TABLET PO SCH ×2 (08:59→16:57)
[2017-03-24] MEDS: MEROPENEM 1 G in IV NS 0.9% 100 ML IV SCH ×2 (09:00→21:20)
[2017-03-24] MEDS: CARBIDOPA/LEVODOPA 10/100 MG 1 UDTAB PO SCH ×3 (09:04→16:56)
[2017-03-24] MEDS: NYSTATIN (PYXIS) 500,000 UNIT/5 ML ORAL.SUSP PO SCH ×3 (09:13→16:56)
[2017-03-24] MEDS: CLOTRIMAZOLE 1% 15 GM TUBE TP SCH ×2 (09:14→16:57)
[2017-03-24] MEDS: MUPIROCIN OINT 2% 22 GM TUBE SCH ×2 (09:15→21:22)
--- NOTE | 2017-03-24 11:56 | NUR ---
CUSTOM GRINDER NOTE SEEN BY DR CRANE WITH POSSIBLE DISCHARGE TO [facility]
[2017-03-24] MEDS ORDERED: BUME1TAB16 PO (11:58)
[2017-03-24] MEDS ORDERED: ACET1OOV6 NEB (11:58)
[2017-03-24] MEDS ORDERED: CARV3.122 PO (11:58)
[2017-03-24] MEDS ORDERED: AMIO200T7 PO (11:58)
[2017-03-24] MEDS ORDERED: PRED20TA PO (11:58)
[2017-03-24] MEDS ORDERED: ATOR40TA PO (11:58)
[2017-03-24] MEDS ORDERED: ACET250T9 PO (11:58)
[2017-03-24] MEDS ORDERED: ASPI81TA2 PO (11:58)
[2017-03-24 13:34] VITALS: BP 89/51
--- NOTE | 2017-03-24 14:09 | NUR ---
NAUMKEAG OPERATOR NOTE SEEN BY RT WITH BREATHING TX
[2017-03-24 16:00] VITALS: BP 112/52
--- NOTE | 2017-03-24 16:34 | NUR ---
QUALIFIED CRAFT WORKER ELECTRICIAN NOTE SPOKE WITH MANNY AWARE THAT PATIENT WILL TRANSFER TO SNF [facility] ALSO CALLED FOR REPORT SPOKE WITH MARIN FU
--- NOTE | 2017-03-24 18:27 | NUR ---
HEALTH EQUIPMENT SERVICER NOTE PER ASE LITHARGE SUPERVISOR AND RN FROM SNF NO BED AVAILABLE TO ISOLATION ,WILL DISCHARGE TOMORROW DR FRY AWARE, MANNY AWARE
--- NOTE | 2017-03-24 19:30 | NUR ---
MICA LAMINATING MACHINE FEEDER INITIAL NOTE RECEIVED PATIENT IN BED, AWAKE, ALERT AND ORIENTED X2, ABLE TO VERBALIZE NEEDS. PATIENT CURRENTLY ON O2 VIA NC @ 2LPM, TOLERATING WELL, FREE FROM ANY S/S OF RESPIRATORY DISTRESS, NOTED WITH PRODUCTIVE COUGH. ON TELEMETRY MONITORING, REVEALING V PACING, HR 70S AT THIS TIME. BEY CATHETER PATENT AND INTACT, DRAINING YELLOW COLORED URINE TO DRAINAGE BAG VIA GRAVITY. RIGHT AC #18G PATENT AND INTACT, FLUSHED WITH NS, TKO. CALL LIGHT LEFT WITHIN EASY REACH, BED IN LOWEST AND LOCKED POSITION. WILL CONTINUE TO CLOSELY MONITOR.
[2017-03-24 20:00] VITALS: BP 107/62
[2017-03-24] MEDS: ATORVASTATIN 40 MG TABLET PO SCH (21:22)
--- NOTE | 2017-03-24 22:00 | NUR ---
RN NOTES PATIENT PLACED ON NOCTURNAL BIPAP BY RT BRIA, TOLERATING WELL, WILL CONTINUE TO CLOSELY MONITOR
[2017-03-25] VITALS: BP 107/82
[2017-03-25] MEDS: ALBUTEROL FS 2.5 MG/3 ML VIAL.NEB NEB SCH ×3 (01:20→14:40)
[2017-03-25] MEDS: IPRATROPIUM NEB FS 0.5 MG/2.5 ML AMPUL.NEB NEB PRN (01:20)
[2017-03-25] MEDS ORDERED: IV NS 0.9% 250 ML IV ONE (03:17)
[2017-03-25 04:00] VITALS: BP 139/81
--- NOTE | 2017-03-25 04:00 | NUR ---
RN NOTES PATIENT TAKEN OFF OF BIPAP, PLACED ON NC @ 2LPM, TOLERATING WELL, FREE FROM ANY S/S OF RESPIRATORYDISTRESS
--- NOTE | 2017-03-25 07:01 | NUR ---
RN CLOSING NOTES PATIENT RESTING COMFORTABLY IN BED. NO ACUTE CHANGES THROUGHOUT THE SHIFT WILL ENDORSE THE PATIENT TO THE AM SHIFT NURSE FOR PILLO
[2017-03-25 08:00] VITALS: BP 91/48
[2017-03-25] MEDS: ACETYLCYSTEINE 10% SOLN 400 MG/4 ML VIAL NEB SCH ×2 (08:00→14:40)
--- NOTE | 2017-03-25 08:00 | NUR ---
TELE1/RN AM SHIFT INITIAL NOTES RECEIVED PT ASLEEP IN BED, NO ACUTE RESPIRATORY DISTRESS OR CHANGE OF CONDITION NOTED. PT A/O X 2-3, ABLE TO VERBALIZED NEEDS, ON 2L O2 VIA N/C SATURATING @ 97%, NOTED WITH RHONCHI LUNG SOUNDS. ON TELE WITH V-PACING, HR 67. IV SITE FLUSHED PATENT WITH NO S/S OF INFECTION. BEY CATHETER INTACT DRAINING YELLOW URINE. PT IS COMFORTABLE AT THIS TIME. SCHEDULED AM MEDS TO BE GIVEN. CL WITHIN REACHED, SAFETY MAINTAINED AND ISOLATION OBSERVED.
[2017-03-25] MEDS: ASPIRIN 81 MG TAB.CHEW PO SCH (08:25)
[2017-03-25] MEDS: LACTOBACILLUS RHAMNOSUS GG 1 EACH CAP.SPRINK PO SCH (08:25)
[2017-03-25] MEDS: predniSONE 20 MG TABLET PO SCH (08:25)
[2017-03-25] MEDS: PANTOPRAZOLE 40 MG VIAL IV SCH (08:25)
[2017-03-25] MEDS: CARVEDILOL 3.125 MG TABLET PO SCH (08:25)
[2017-03-25] MEDS: LEVOTHYROXINE SODIUM 137 MCG TABLET PO SCH (08:25)
[2017-03-25] MEDS: CARBIDOPA/LEVODOPA 10/100 MG 1 UDTAB PO SCH ×2 (08:26→12:15)
[2017-03-25] MEDS: NYSTATIN (PYXIS) 500,000 UNIT/5 ML ORAL.SUSP PO SCH ×2 (08:26→12:15)
[2017-03-25] MEDS: BUMETANIDE (1 MG) 1 MG TABLET PO SCH (08:27)
[2017-03-25] MEDS: AMIODARONE HCL 200 MG TABLET PO SCH (08:29)
[2017-03-25] MEDS: CLOTRIMAZOLE 1% 15 GM TUBE TP SCH (08:30)
[2017-03-25] MEDS: MUPIROCIN OINT 2% 22 GM TUBE SCH (08:30)
[2017-03-25 12:00] VITALS: BP 101/63
--- NOTE | 2017-03-25 14:25 | NUR ---
TELE1/RN ROUNDS NO ACUTE CHANGE OF CONDITION. PT REPOSITIONED. ON GOING MONITORING.
--- NOTE | 2017-03-25 15:40 | NUR ---
TELE1/RN REPORT - SNF REPORT GIVEN TO MARIN LOVE RN OF [facility]. EXPECTED AMBULANCE PICK-UP @ 1710.
[2017-03-25 16:00] VITALS: BP 104/60
--- NOTE | 2017-03-25 16:43 | NUR ---
TELE1/CABINET ABRASIVE SANDBLASTER - SNF REPORT GIVEN TO TRANSPORT PERSONNEL. IV SITE REMOVED, PRESSURE DRESSING APPLIED, NO S/S OF INFECTION. ID BANDS REMOVED. BEY CATHETER INTACT. PT LEFT TELE1 UNIT VIA GURNEY IN STABLE CONDITION.
[2017-03-26] MEDS ORDERED: BUMETANIDE (1 MG) 1 MG TABLET PO SCH (09:00)
== END 2017-03-25 16:43 | DRG 871 ==
LOC: ER 10:13 → ICU 11:50 → TELE 03-09 18:29 → MED 03-10 10:48 → TELE-TD 03-17 14:23 → TELE1 03-17 14:33 → TELE-TD 03-17 14:44 → TELE1 03-19 15:30
PROC: 5A09457 Assistance with Respiratory Ventilation, 24-96 Consecutive Hours, Continuous Positive Airway Pressure (ICD-10-PCS; principal; 2017-03-07)
PROC: 30233N1 Transfusion of Nonautologous Red Blood Cells into Peripheral Vein, Percutaneous Approach (ICD-10-PCS; 2017-03-10)
PROC: 0DJ08ZZ Inspection of Upper Intestinal Tract, Via Natural or Artificial Opening Endoscopic (ICD-10-PCS; 2017-03-11)
PROC: 0DJD8ZZ Inspection of Lower Intestinal Tract, Via Natural or Artificial Opening Endoscopic (ICD-10-PCS; 2017-03-11)
DX: A41.9 Sepsis, unspecified organism (principal); J96.21 Acute and chronic respiratory failure with hypoxia; I21.4 Non-ST elevation (NSTEMI) myocardial infarction; I50.43 Acute on chronic combined systolic (congestive) and diastolic (congestive) heart failure; J96.22 Acute and chronic respiratory failure with hypercapnia; G92 Toxic encephalopathy; J69.0 Pneumonitis due to inhalation of food and vomit; I13.0 Hypertensive heart and chronic kidney disease with heart failure and stage 1 through stage 4 chronic kidney disease, or unspecified chronic kidney disease; J44.0 Chronic obstructive pulmonary disease with (acute) lower respiratory infection; J44.1 Chronic obstructive pulmonary disease with (acute) exacerbation; N17.9 Acute kidney failure, unspecified; N18.4 Chronic kidney disease, stage 4 (severe); D68.59 Other primary thrombophilia; K92.2 Gastrointestinal hemorrhage, unspecified; E66.2 Morbid (severe) obesity with alveolar hypoventilation; E87.2 Acidosis; N39.0 Urinary tract infection, site not specified; E87.0 Hyperosmolality and hypernatremia; I47.1 Supraventricular tachycardia; I42.9 Cardiomyopathy, unspecified; B96.20 Unspecified Escherichia coli [E. coli] as the cause of diseases classified elsewhere; D63.1 Anemia in chronic kidney disease; E11.22 Type 2 diabetes mellitus with diabetic chronic kidney disease; E11.69 Type 2 diabetes mellitus with other specified complication; E03.9 Hypothyroidism, unspecified; E87.5 Hyperkalemia; F03.90 Unspecified dementia, unspecified severity, without behavioral disturbance, psychotic disturbance, mood disturbance, and anxiety; Z68.34 Body mass index [BMI] 34.0-34.9, adult; N40.0 Benign prostatic hyperplasia without lower urinary tract symptoms; G20 Parkinson's disease; H40.9 Unspecified glaucoma; I48.0 Paroxysmal atrial fibrillation; I25.10 Atherosclerotic heart disease of native coronary artery without angina pectoris; F32.9 Major depressive disorder, single episode, unspecified; D53.9 Nutritional anemia, unspecified; Z95.810 Presence of automatic (implantable) cardiac defibrillator; I25.2 Old myocardial infarction; Z86.79 Personal history of other diseases of the circulatory system; B96.89 Other specified bacterial agents as the cause of diseases classified elsewhere; I52 Other heart disorders in diseases classified elsewhere; M16.0 Bilateral primary osteoarthritis of hip; Y95 Nosocomial condition; Z22.322 Carrier or suspected carrier of Methicillin resistant Staphylococcus aureus
CPT/HCPCS: 36415; 36600; 71010-TC; 80048-TC; 80053-TC; 80061-TC; 80076-TC; 80202-TC; 81000-TC; 82272-TC; 82746; 82962-TC; 83605-TC; 83735-TC; 83880; 84100-TC; 84132-TC; 84443-TC; 84484-TC; 85025-TC; 85027-TC; 85652-TC; 85730-TC; 86850-TC; 86921-TC; 87040-TC; 87045-TC; 87070-TC; 87081-TC; 87086-TC; 87186-TC; 89055; 92526; 92611-TC; 94660; 94760-TC; 94762-TC; 94799-TC; 97001-TC; 97110-TC; 97530-TC; 99082-TC; A4216; A4606; C9113; J0282; J0692; J1940; J1956; J2060; J2185; J2543; J2704; J2930; J3370; J3475; J3490; J7030; J7050; J7060; J7070; P9016-BL; Z7610